=== PATIENT | female | born 2000 | race Caucasian/White ===

== ENCOUNTER 2021-01-08 13:00 | Emergency (ER) | payer MEDICAID, SELFPAY ==
--- NOTE | ~2021-01-08 | CT_ITS ---
EXAMINATION: CT abdomen pelvis w con EXAM DATE: 01/08/2021 15:33 INDICATION: Right sided abdominal pain. TECHNIQUE: Spiral CT of the abdomen and pelvis was performed following intravenous injection of 100 m L Omnipaque 350. Axial, coronal and sagittal images of the abdomen and pelvis were reviewed. The do se-length product (DLP) for this examination was 1507.10 mGy-cm. The exposure was tailored according to patient size (auto mA exposure control), and iterative reconstruction (ASIR) was used as addition al dose reduction technique. There is no prior study for comparison. FINDINGS: Punctate splenic granulomata. The liver, spleen, adrenal glands and pancreas are unremarka ble. There are cholecystectomy clips. Portal and splenic veins are patent. Kidneys enhance symmetr ically. There is no hydronephrosis. The uterus and ovaries are unremarkable, no adnexal mass. The bladder is unremarkable. There is no retroperitoneal or pelvic lymphadenopathy. The appendix is normal. The stomach and small bowel are unremarkable. There is expected amount of c olonic stool. No free intraperitoneal gas. The heart is normal in size. There are no pericardial or pleural effusions. The lung bases are unremarkable. The bones are unremarkable. IMPRESSION: 1. No acute intra-abdominal findings. Reviewed, dictated and finalized at location B.
[2021-01-08 13:15] VITALS: BP 111/64; RESP 18; TEMP 36.4; O2SAT 99
--- NOTE | 2021-01-08 13:35 | ED.GENADULT ---
HPI - General Adult General Chief complaint: Abdominal Pain Stated complaint: abd pain Time Seen by Provider: 01/08/21 13:05 History of Present Illness HPI narrative: Patient is a 20-year-old female who presents to the ER with upper abdominal pain. Right side. Sudden onset 2 hours ago. Radiates to her back. No nausea or vomiting. She has had her gallbladder removed. Cannot identify any aggravating or alleviating factors. Denies urinary symptoms. Related Data Home Medications Medication Instructions Recorded Confirmed buspirone 5 mg PO DAILY 01/08/21 cetirizine [Zyrtec] 10 mg PO DAILY 01/08/21 cholecalciferol (vitamin D3) 1,250 mcg PO WEEKLY 01/08/21 citalopram [Celexa] 20 mg PO DAILY 01/08/21 lisinopril-hydrochlorothiazide 1 tablet PO DAILY 01/08/21 phentermine [Adipex-P] 37.5 mg PO DAILY 01/08/21 potassium chloride 10 meq PO DAILY 01/08/21 Allergies Allergy/AdvReac Type Severity Reaction Status Date / Time brompheniramine Allergy Anaphylaxis Verified 01/08/21 13:24 Penicillins Allergy Anaphylaxis Verified 01/08/21 13:20 phenylephrine Allergy Anaphylaxis Verified 01/08/21 13:24 Review of Systems Review of Systems: All systems reviewed & are unremarkable except as noted in HPI and below Constitutional: Constitutional: Denies chills, Denies fever(s) and Denies weakness ENT: Denies nasal congestion and Denies sore throat Cardiovascular: Cardiovascular: Denies chest pain and Denies radiating jaw, neck or arm pain Gastrointestinal: Gastrointestinal: Reports abdominal pain, Denies diarrhea, Denies nausea and Denies vomiting Genitourinary: Genitourinary: Denies hematuria, Denies nocturia, Denies dysuria and Denies flank pain [facility] Past Medical History Medical History (Updated 01/08/21 @ 16:04 by Jorge Montalvo MD) Depression Hypertension Surgical History Surgical History (Updated 01/08/21 @ 13:37 by Jorge Montalvo MD) History of cholecystectomy Social History Social History (Updated 01/08/21 @ 13:37 by Jorge Montalvo MD) Smoking status: Never smoker Exam Narrative: Exam Narrative: GENERAL: Well-appearing, morbidly obese, and in no acute distress. HEAD: Normocephalic, atraumatic. CHEST: Clear to auscultation. No respiratory distress. HEART: Regular rate and rhythm. Normal peripheral pulses. ABDOMEN: Soft, mild tenderness in the right upper and lower quadrants without guarding, nondistended. EXTREMITIES: Normal range of motion. No edema. SKIN: Warm, dry, no rash. NEURO: Alert and oriented x3. PSYCH: Normal mood and affect. Course Course Emergency Course: Unremarkable evaluation. Discharge home. Vital Signs Vital signs: Vital Signs Temperature 97.5 F L 01/08/21 13:15 Respiratory Rate 18 01/08/21 13:15 Blood Pressure 111/64 01/08/21 13:15 Pulse Oximetry 99 01/08/21 13:15 Temperature 97.5 F L 01/08/21 13:15 Respiratory Rate 18 01/08/21 13:15 Blood Pressure 111/64 01/08/21 13:15 Pulse Oximetry 99 01/08/21 13:15 Medical Decision Making Vital Signs Vital Signs: Vital Signs Temperature 97.5 F L 01/08/21 13:15 Respiratory Rate 18 01/08/21 13:15 Blood Pressure 111/64 01/08/21 13:15 Pulse Oximetry 99 01/08/21 13:15 Temperature 97.5 F L 01/08/21 13:15 Respiratory Rate 18 01/08/21 13:15 Blood Pressure 111/64 01/08/21 13:15 Pulse Oximetry 99 01/08/21 13:15 Lab Data Result diagrams: 01/08/21 13:35 01/08/21 13:35 Labs: Lab Results 01/08/21 01/08/21 01/08/21 Range/Units 13:35 13:35 13:45 WBC 12.9 H (4.5-10.0) K/mm3 RBC 5.20 (4.2-5.4) M/mm3 Hgb 14.3 (12.0-15.0) g/dL Hct 43.2 (37.0-47.0) % MCV 83.1 (80-100) fl MCH 27.5 (26-34) pg MCHC 33.1 (32-36) g/dl RDW 14.3 (11.5-14.5) % Plt Count 395 H (150-375) k/mm3 MPV 10.8 H (7.4-10.4) fl Immature Gran % (Auto) 0.3 (0-0.5) % Neut % (Auto) 71.5 (45.5-73.1) % Lymph %
[2021-01-08 13:44] LABS: Basophils Absolute Auto 0.1 K/mm3 (0.0-0.1); Basophils Percent Auto 0.6 % (0.2-1.2); Eosinophils Absolute Auto 0.1 K/mm3 (0-0.3); Eosinophils Percent Auto 0.9 % (0-4.4); Hematocrit 43.2 % (37.0-47.0); Hemoglobin 14.3 g/dL (12.0-15.0); Immature Granulocyte Absolute 0.04 K/mm3 (0.00-0.031); Immature Granulocyte Percent A 0.3 % (0-0.5); Lymphocytes Absolute Auto 2.68 K/mm3 (0.9-3.2); Lymphocytes Percent Auto 20.7 % (18.3-44.2); Mean Corpuscular HGB Conc 33.1 g/dl (32-36); Mean Corpuscular Hemoglobin 27.5 pg (26-34); Mean Corpuscular Volume 83.1 fl (80-100); Mean Platelet Volume 10.8 fl (7.4-10.4); Monocytes Absolute Auto 0.8 K/mm3 (0.1-0.6); Neutrophils Absolute Auto 9.2 K/mm3 (1.3-6.7); Neutrophils Percent Auto 71.5 % (45.5-73.1); Platelet Count Result 395 k/mm3 (150-375); Red Cell Distribution Width 14.3 % (11.5-14.5); White Blood Count 12.9 K/mm3 (4.5-10.0)
[2021-01-08] MEDS: MORPHINE SULFATE (*CRX) 4 MG/ML INJ IV PUSH (13:48)
[2021-01-08 13:55] LABS: Alanine Aminotransferase 33 U/L (4-35); Albumin Level 4.8 g/dL (3.5-5.1); Alkaline Phosphatase 107 U/L (38-126); Anion Gap 11 mmol/L (8-16); Aspartate Amino Transferase 52 U/L (14-36); Bilirubin,Total 1.1 mg/dL (0.2-1.3); Blood Urea Nitrogen 21 mg/dL (7-17); Calcium 9.4 mg/dL (8.4-10.2); Carbon Dioxide 25 mmol/L (22-30); Chloride 102 mmol/L (98-107); Estimated CRCL calculation 102 ml/min; Estimated Glomerular Filt Rate > 60; Glucose 75 mg/dL (65-105); Lipase 64 U/L (23-300); Potassium 3.8 mmol/L (3.4-5.0); Sodium 138 mmol/L (137-145)
[2021-01-08 14:11] LABS: Add Urine Microscopic? YES; Appearance Urine Cloudy (Clear); Bilirubin Urine Negative (Negative); Blood Urine Negative (Negative); Color Urine Yellow (Yellow); Glucose Urine UA Negative (Negative); Ketones Urine 2+ mg/dL (Negative); Leukocyte Esterase Ur Negative LEU/UL (Negative); Mucus Urine Few /lpf; Nitrate Urine Negative (Negative); Protein Urine Negative (Negative); RBC Urine 0-2 /hpf (0-2); Specific Grav Ur 1.024 (1.001-1.035); Squamous Epithelial Cell Urine Few /hpf (Few); Urobilinogen Urine Negative mg/dL (<2.0); WBC Urine 0-3 /hpf
[2021-01-08 16:25] VITALS: BP 118/75; PULSE 72; RESP 18; O2SAT 100
== END 2021-01-08 16:25 | disposition home or self-care (01) ==
PROVIDERS: Emergency Provider Emergency Medicine
DX: R10.10 Upper abdominal pain, unspecified (principal); F32.9 Major depressive disorder, single episode, unspecified; I10 Essential (primary) hypertension
CPT/HCPCS: 36415; 74177; 80053; 81001; 81025; 83690; 85025; 96374; 99284; J2270; Q9967

== ENCOUNTER 2021-01-14 12:05 | Emergency (ER) | payer MEDICAID, SELFPAY ==
[2021-01-14 12:48] VITALS: BP 119/76; PULSE 80; RESP 18; TEMP 36.2; O2SAT 100
[2021-01-14 13:04] LABS: Basophils Absolute Auto 0.1 K/mm3 (0.0-0.1); Basophils Percent Auto 0.7 % (0.2-1.2); Eosinophils Absolute Auto 0.2 K/mm3 (0-0.3); Eosinophils Percent Auto 2.1 % (0-4.4); Hemoglobin 14.7 g/dL (12.0-15.0); Immature Granulocyte Absolute 0.03 K/mm3 (0.00-0.031); Immature Granulocyte Percent A 0.3 % (0-0.5); Lymphocytes Absolute Auto 2.08 K/mm3 (0.9-3.2); Lymphocytes Percent Auto 22.8 % (18.3-44.2); Mean Corpuscular HGB Conc 32.7 g/dl (32-36); Mean Corpuscular Hemoglobin 27.7 pg (26-34); Mean Corpuscular Volume 84.9 fl (80-100); Mean Platelet Volume 10.8 fl (7.4-10.4); Monocytes Absolute Auto 0.7 K/mm3 (0.1-0.6); Monocytes Percent Auto 7.1 % (2.6-8.5); Neutrophils Absolute Auto 6.1 K/mm3 (1.3-6.7); Platelet Count Result 347 k/mm3 (150-375); Red Cell Distribution Width 14.3 % (11.5-14.5); White Blood Count 9.1 K/mm3 (4.5-10.0)
[2021-01-14 13:17] LABS: Alanine Aminotransferase 26 U/L (4-35); Albumin Level 4.4 g/dL (3.5-5.1); Alkaline Phosphatase 96 U/L (38-126); Anion Gap 4 mmol/L (8-16); Aspartate Amino Transferase 28 U/L (14-36); Bilirubin,Total 0.9 mg/dL (0.2-1.3); Blood Urea Nitrogen 15 mg/dL (7-17); Calcium 9.3 mg/dL (8.4-10.2); Carbon Dioxide 31 mmol/L (22-30); Chloride 101 mmol/L (98-107); Estimated CRCL calculation 112 ml/min; Estimated Glomerular Filt Rate > 60; Glucose 93 mg/dL (65-105); Lipase 43 U/L (23-300); Potassium 4.4 mmol/L (3.4-5.0); Sodium 136 mmol/L (137-145)
[2021-01-14 13:44] LABS: Add Urine Microscopic? YES; Appearance Urine Cloudy (Clear); Bacteria Urine Trace /hpf; Bilirubin Urine Negative (Negative); Blood Urine Negative (Negative); Color Urine Yellow (Yellow); Glucose Urine UA Negative (Negative); Ketones Urine Negative (Negative); Leukocyte Esterase Ur 2+ LEU/UL (Negative); Mucus Urine Rare /lpf; Nitrate Urine Negative (Negative); Protein Urine Negative (Negative); RBC Urine 0-2 /hpf (0-2); Specific Grav Ur 1.016 (1.001-1.035); Squamous Epithelial Cell Urine Many /hpf (Few); Urobilinogen Urine Negative mg/dL (<2.0)
--- NOTE | 2021-01-14 14:04 | PC.NURSE ---
assisted dr kang with rectal exam
--- NOTE | 2021-01-14 14:33 | ED.GENADULT ---
HPI - General Adult General Chief complaint: Nausea/Vomiting/Diarrhea Stated complaint: dark stools, vomiting Time Seen by Provider: 01/14/21 13:48 History of Present Illness HPI narrative: Patient is a 20-year-old female who presents ER with abdominal pain as well as discomfort in her throat and dark stools. Patient seen last week and had an unremarkable evaluation including blood work and CT scan. Patient reports symptoms have persisted and now she is having dark black stools intermittently. They are not loose and she has not lost consciousness. No history of GI bleed. She takes famotidine intermittently for GERD. Patient reports her throat feels uncomfortable she is able to stop although even though she has discomfort. Patient reports she has now canceled her [employer] insurance and is going to apply for [employer] insurance. She does not have a doctor in the area. Related Data Home Medications Medication Instructions Recorded Confirmed buspirone 5 mg PO DAILY 01/08/21 cetirizine [Zyrtec] 10 mg PO DAILY 01/08/21 cholecalciferol (vitamin D3) 1,250 mcg PO WEEKLY 01/08/21 citalopram [Celexa] 20 mg PO DAILY 01/08/21 lisinopril-hydrochlorothiazide 1 tablet PO DAILY 01/08/21 phentermine [Adipex-P] 37.5 mg PO DAILY 01/08/21 potassium chloride 10 meq PO DAILY 01/08/21 Allergies Allergy/AdvReac Type Severity Reaction Status Date / Time brompheniramine Allergy Anaphylaxis Verified 01/08/21 13:24 Penicillins Allergy Anaphylaxis Verified 01/08/21 13:20 phenylephrine Allergy Anaphylaxis Verified 01/08/21 13:24 Review of Systems Review of Systems: All systems reviewed & are unremarkable except as noted in HPI and below Constitutional: Constitutional: Denies chills, Denies fever(s) and Denies weakness ENT: Denies nasal congestion and Reports sore throat Gastrointestinal: Gastrointestinal: Denies abdominal pain, Reports heartburn, Denies diarrhea, Reports nausea and Reports vomiting PMFSH Past Medical History Medical History (Updated 01/14/21 @ 14:34 by Jorge Montalvo MD) Depression Hypertension Surgical History Surgical History (Updated 01/08/21 @ 13:37 by Jorge Montalvo MD) History of cholecystectomy Social History Social History (Updated 01/08/21 @ 13:37 by Jorge Montalvo MD) Smoking status: Never smoker Exam Narrative: Exam Narrative: GENERAL: Well-appearing, morbidly obese, and in no acute distress. HEAD: Normocephalic, atraumatic. CHEST: Clear to auscultation. No respiratory distress. HEART: Regular rate and rhythm. Normal peripheral pulses. ABDOMEN: Soft, nontender, nondistended. Heme-negative stool on digital rectal exam. Normal-appearing rectum free of fissures or hemorrhoids. EXTREMITIES: Normal range of motion. No edema. SKIN: Warm, dry, no rash. NEURO: Alert and oriented x3. PSYCH: Normal mood and affect. Course Course Emergency Course: No evidence of GI bleed but will place patient on twice daily PPI to treat a peptic ulcer in case she is started develop 1. I will give her PCP as well as GI follow-up. Blood work normal and stable. Vital Signs Vital signs: Vital Signs Temperature 97.1 F L 01/14/21 12:48 Pulse Rate 80 01/14/21 12:48 Respiratory Rate 18 01/14/21 12:48 Blood Pressure 119/76 01/14/21 12:48 Pulse Oximetry 100 01/14/21 12:48 Temperature 97.1 F L 01/14/21 12:48 Pulse Rate 80 01/14/21 12:48 Respiratory Rate 18 01/14/21 12:48 Blood Pressure 119/76 01/14/21 12:48 Pulse Oximetry 100 01/14/21 12:48 Medical Decision Making Vital Signs Vital Signs: Vital Signs Temperature 97.1 F L 01/14/21 12:48 Pulse Rate 80 01/14/21 12:48 Respiratory Rate 18 01/14/21 12:48 Blood Pressure 119/76 01/14/21 12:48 Pulse Oximetry 100 01/14/21 12:48 Temperature 97.1 F L 01/14/21 12:48 Pulse Rate 80 01/14/21 12:48 Respiratory Rate 18 01/14/21 12:48 Blood Pressure 119/76 01/14/21 12:48 Pulse Oximetry 100 05
[2021-01-14 14:47] VITALS: BP 122/78; PULSE 68; RESP 18; O2SAT 99
== END 2021-01-14 14:49 | disposition home or self-care (01) ==
PROVIDERS: Emergency Provider Emergency Medicine
DX: K29.70 Gastritis, unspecified, without bleeding (principal); F32.9 Major depressive disorder, single episode, unspecified; I10 Essential (primary) hypertension
CPT/HCPCS: 36415; 80053; 81001; 81025; 83690; 85025; 87086; 87088; 99283

== ENCOUNTER → 2021-10-03 09:49 | Outpatient (CLI) | payer OTHER, SELFPAY ==
[2021-10-03 18:23] LABS: SARS-CoV-2 RNA PCR Negative
== END ==
PROVIDERS: PCP Nurse Practitioner Family; Visit Provider Family Medicine
DX: R50.9 Fever, unspecified (principal); Z20.822 Contact with and (suspected) exposure to COVID-19
CPT/HCPCS: C9803; U0003; U0005

== ENCOUNTER → 2021-10-15 02:02 | Outpatient (CLI) | payer OTHER, SELFPAY ==
[2021-10-15 17:21] LABS: SARS-CoV-2 RNA PCR Negative
== END ==
PROVIDERS: PCP Nurse Practitioner Family; Visit Provider Family Medicine
DX: R50.9 Fever, unspecified (principal); Z20.822 Contact with and (suspected) exposure to COVID-19
CPT/HCPCS: C9803; U0003; U0005

== ENCOUNTER 2021-12-24 11:21 | Emergency (ER) | payer OTHER, SELFPAY ==
--- NOTE | ~2021-12-24 | XR_ITS ---
EXAMINATION: XR chest 2V DATE: 12/24/2021 13:24 INDICATION: Pneumonia. TECHNIQUE: Frontal and lateral views of the chest were obtained. COMPARISON: CT abdomen and pelvis 12/24/2021 FINDINGS: There are small nodules in right upper lobe, consistent with pneumonia. No pleural effusion or pneumothorax. The heart size is normal. Surgical clips in the right upper quadrant are likely fro m cholecystectomy. IMPRESSION: 1. Mild right upper lobe pneumonia. The mild pneumonia in the lower lobes seen by CT is not visible. Reviewed, dictated and finalized at location B.
--- NOTE | ~2021-12-24 | CT_ITS ---
EXAMINATION: CT abdomen pelvis w con DATE: 12/24/2021 12:36 INDICATION: Epigastric and right upper quadrant abdominal pain. TECHNIQUE: Computed tomography (CT) of the abdomen and pelvis was performed with 100 mL Omnipaque 350 intravenous contrast. Automated exposure control and iterative reconstruction technique were employe d. The dose-length product was 1518.10 mGy-cm. COMPARISON: CT abdomen and pelvis 01/08/2021 FINDINGS: The visualized portions of the lung bases demonstrate centrilobular nodules and tree-in-bud opacities in the lower lobes, consistent with pneumonia. No pleural effusion. The heart size is norm al. No pericardial effusion. The liver is normal. There are changes of cholecystectomy. Calcification s in the spleen are consistent with old granulomatous disease. The pancreas, adrenal glands, and kidn eys are normal. There are no dilated loops of bowel. There is liquid stool in the colon correlating w ith the symptom of diarrhea. The appendix is normal. There are no pathologically enlarged lymph nodes . There is no free intraperitoneal fluid. There is mild thoracic spondylosis. IMPRESSION: 1. Mild pneumonia in the lower lobes. Reviewed, dictated and finalized at location B.
[2021-12-24 11:23] VITALS: BP 132/80; PULSE 108; RESP 18; TEMP 36.8; O2SAT 98
--- NOTE | 2021-12-24 11:32 | ED.NAVMDI ---
HPI - Nausea/Vomiting/Diarrhea General Chief complaint: Nausea/Vomiting/Diarrhea <TOMI Mendez Last Filed: 12/24/21 19:46> Stated complaint: diarrhea, vomiting <TOMI Mendez Last Filed: 12/24/21 19:46> Time Seen by Provider: 12/24/21 11:31 <TOMI Mendez Last Filed: 12/24/21 19:46> Source: patient <TOMI Mendez Last Filed: 12/24/21 19:46> Limitations: no limitations <TOMI Mendez Last Filed: 12/24/21 19:46> History of Present Illness HPI Narrative: Patient is a 21 y/o female who presents to the ED with c/o N/V/D. Patient reports she first developed diarrhea 1 week ago. Approximately a day later, she developed diffuse upper abdominal pain, worst in epigastric region and right upper quadrant, and nausea and vomiting. She states she has been unable to keep much down. She has been using Ibuprofen and Zofran at home without much relief of her symptoms. Patient also reports having a fever up to 102 at home, in addition to a mild cough and congestion, which she has attributed to her chronic seasonal allergies. No rectal bleeding, hematemesis, dysuria, hematuria Denies any sore throat, rhinorrhea. <TOMI Mendez Last Filed: 12/24/21 19:46> Related Data Home medications: Home Medications Medication Instructions Recorded Confirmed buspirone 5 mg PO DAILY 01/08/21 cholecalciferol (vitamin D3) 1,250 mcg PO WEEKLY 01/08/21 citalopram [Celexa] 20 mg PO DAILY 01/08/21 lisinopril-hydrochlorothiazide 1 tablet PO DAILY 01/08/21 <TOMI Mendez Last Filed: 12/24/21 19:46> Allergies/Adverse reactions: Allergies Allergy/AdvReac Type Severity Reaction Status Date / Time brompheniramine Allergy Anaphylaxis Verified 01/08/21 13:24 Penicillins Allergy Anaphylaxis Verified 01/08/21 13:20 phenylephrine Allergy Anaphylaxis Verified 01/08/21 13:24 sulfamethoxazole Allergy Anaphylaxis Verified 12/24/21 11:40 [From Bactrim] trimethoprim [From Bactrim] Allergy Anaphylaxis Verified 12/24/21 11:40 <Promise Rivera PA-C - Last Filed: 12/24/21 19:46> Review of Systems Review of Systems: CONSTITUTIONAL: Reports fever. ENT: Reports congestion. Denies rhinorrhea, sore throat. CARDIOVASCULAR: Denies chest pain. RESPIRATORY: Reports cough. Denies dyspnea. GASTROINTESTINAL: Reports abdominal pain, nausea, vomiting, and diarrhea. Denies constipation, hematemesis, rectal bleeding. GENITOURINARY: Denies dysuria or hematuria. MUSCULOSKELETAL: Denies back pain, joint pain, or myalgia. <Promise Rivera PA-C - Last Filed: 12/24/21 19:46> All systems reviewed & are unremarkable except as noted in HPI and below <Promise Rivera PA-C - Last Filed: 12/24/21 19:46> [facility] Past Medical History Medical History: Medical History Depression Hypertension <Promise Rivera PA-C - Last Filed: 12/24/21 19:46> Surgical History Surgical History: Surgical History History of cholecystectomy <Promise Rivera PA-C - Last Filed: 12/24/21 19:46> Social History Social History: Social History Smoking status: Never smoker <Promise Rivera PA-C - Last Filed: 12/24/21 19:46> Exam Narrative: GENERAL: Well appearing, obese, non-toxic, in no acute distress. HEAD: Normocephalic, atraumatic. NECK: Supple. No adenopathy, no masses. RESPIRATORY: Airway patent, respirations nonlabored. Clear to auscultation bilaterally, no rales, rhonchi, wheezing. CARDIOVASCULAR: Tachycardic with regular rhythm without murmurs, rubs, or gallops. Radial pulses 2+ and equal bilaterally. ABDOMINAL: Soft, tenderness to palpation of epigastric and RUQ, nondistended, no hepatosplenomegaly. Normoactive BS. MUSCULOSKELETAL: Moves all extremities. Strength/ROM intact without gross deformities or TTP. SKIN
[2021-12-24 12:05] LABS: Basophils Absolute Auto 0.1 K/mm3 (0.0-0.1); Basophils Percent Auto 0.5 % (0.2-1.2); Eosinophils Absolute Auto 0.2 K/mm3 (0-0.3); Hematocrit 55.3 % (37.0-47.0); Hemoglobin 17.9 g/dL (12.0-15.0); Immature Granulocyte Absolute 0.07 K/mm3 (0.00-0.031); Immature Granulocyte Percent A 0.7 % (0-0.5); Lymphocytes Absolute Auto 1.33 K/mm3 (0.9-3.2); Lymphocytes Percent Auto 12.4 % (18.3-44.2); Mean Corpuscular HGB Conc 32.4 g/dl (32-36); Mean Corpuscular Hemoglobin 26.8 pg (26-34); Mean Corpuscular Volume 82.8 fl (80-100); Mean Platelet Volume 10.1 fl (7.4-10.4); Monocytes Percent Auto 8.9 % (2.6-8.5); Neutrophils Absolute Auto 8.1 K/mm3 (1.3-6.7); Neutrophils Percent Auto 75.5 % (45.5-73.1); Platelet Count Result 399 k/mm3 (150-375); Red Blood Count 6.68 M/mm3 (4.2-5.4); Red Cell Distribution Width 17.3 % (11.5-14.5); White Blood Count 10.8 K/mm3 (4.5-10.0)
[2021-12-24 12:12] LABS: Appearance Urine Clear (Clear); Bilirubin Urine 2+ (Negative); Color Urine Yellow (Yellow); Glucose Urine UA Negative (Negative); Ketones Urine Negative (Negative); Leukocyte Esterase Ur Negative LEU/UL (Negative); Nitrate Urine Negative (Negative); Protein Urine 2+ mg/dL (Negative); Specific Grav Ur >= 1.030 (1.001-1.035); Urobilinogen Urine 0.2 mg/dL (<2.0)
[2021-12-24 12:13] LABS: Add Urine Microscopic? YES; Blood Urine Trace-Intact (Negative)
[2021-12-24 12:15] LABS: Alanine Aminotransferase 48 U/L (4-35); Albumin Level 5.3 g/dL (3.5-5.1); Alkaline Phosphatase 101 U/L (38-126); Anion Gap 16 mmol/L (8-16); Aspartate Amino Transferase 54 U/L (14-36); Bilirubin,Total 0.8 mg/dL (0.2-1.3); Blood Urea Nitrogen 19 mg/dL (7-17); Calcium 8.8 mg/dL (8.4-10.2); Carbon Dioxide 18 mmol/L (22-30); Chloride 103 mmol/L (98-107); Estimated CRCL calculation 76 ml/min; Estimated Glomerular Filt Rate 47; Glucose 107 mg/dL (65-110); Lipase 49 U/L (23-300); Potassium 3.7 mmol/L (3.4-5.0); Sodium 137 mmol/L (137-145)
[2021-12-24 12:19] LABS: Bacteria Urine Trace /hpf; Granular Casts Urine 30-49 /lpf; Mucus Urine Heavy /lpf; RBC Urine >75 /hpf (0-2); Squamous Epithelial Cell Urine Many /hpf (Few); WBC Urine 21-30 /hpf
[2021-12-24] MEDS: KETOROLAC 30 MG/ML VIAL (*BKC) IV PUSH (12:42)
[2021-12-24] MEDS: ONDANSETRON INJ 4 MG/2 ML VIAL IV PUSH (12:43)
[2021-12-24] MEDS: SODIUM CHLORIDE 0.9% IV 1,000 ML 999 ML IV CONT ×2 (12:43→14:49)
[2021-12-24 13:30] LABS: Influenza A QL RT-PCR Negative (Negative); Influenza B QL RT-PCR Negative (Negative); SARS-CoV-2 RNA PCR Negative
[2021-12-24 14:51] LABS: Anion Gap 13 mmol/L (8-16); Blood Urea Nitrogen 19 mg/dL (7-17); Carbon Dioxide 18 mmol/L (22-30); Chloride 106 mmol/L (98-107); Estimated CRCL calculation 82 ml/min; Estimated Glomerular Filt Rate 51; Glucose 88 mg/dL (65-110); Potassium 3.4 mmol/L (3.4-5.0); Sodium 137 mmol/L (137-145)
[2021-12-24 15:05] VITALS: BP 125/57; PULSE 74
[2021-12-24 15:06] VITALS: BP 135/87; PULSE 97
[2021-12-24 15:08] VITALS: BP 138/71; PULSE 86
[2021-12-24 16:49] VITALS: BP 139/81; PULSE 87; RESP 20; O2SAT 97
== END 2021-12-24 16:59 | disposition home or self-care (01) ==
PROVIDERS: Physician Assistant; Emergency Provider Emergency Medicine; PCP Nurse Practitioner Family
DX: N17.9 Acute kidney failure, unspecified (principal); J18.9 Pneumonia, unspecified organism; N30.01 Acute cystitis with hematuria; Z20.822 Contact with and (suspected) exposure to COVID-19; I10 Essential (primary) hypertension; F32.A Depression, unspecified
CPT/HCPCS: 36415; 71046; 74177; 80048; 80053; 81001; 81025; 83690; 85025; 87086; 87088; 87502; 96361; 96374; 96375; 99284; C9803; J1885; J2405; J7030; Q9967; U0003; U0005

== ENCOUNTER 2021-12-28 10:28 | Emergency (ER) | payer OTHER, SELFPAY ==
[2021-12-28 10:29] VITALS: BP 155/84; PULSE 85; RESP 18; TEMP 36.6; O2SAT 98
[2021-12-28 10:49] LABS: Basophils Absolute Auto 0.1 K/mm3 (0.0-0.1); Basophils Percent Auto 0.7 % (0.2-1.2); Eosinophils Absolute Auto 0.1 K/mm3 (0-0.3); Eosinophils Percent Auto 1.7 % (0-4.4); Hematocrit 46.8 % (37.0-47.0); Hemoglobin 15.4 g/dL (12.0-15.0); Immature Granulocyte Absolute 0.04 K/mm3 (0.00-0.031); Immature Granulocyte Percent A 0.5 % (0-0.5); Lymphocytes Percent Auto 36.1 % (18.3-44.2); Mean Corpuscular HGB Conc 32.9 g/dl (32-36); Mean Corpuscular Hemoglobin 26.4 pg (26-34); Mean Corpuscular Volume 80.1 fl (80-100); Mean Platelet Volume 9.8 fl (7.4-10.4); Monocytes Absolute Auto 0.5 K/mm3 (0.1-0.6); Monocytes Percent Auto 6.5 % (2.6-8.5); Neutrophils Absolute Auto 4.4 K/mm3 (1.3-6.7); Neutrophils Percent Auto 54.5 % (45.5-73.1); Platelet Count Result 395 k/mm3 (150-375); Red Blood Count 5.84 M/mm3 (4.2-5.4)
[2021-12-28 11:00] LABS: Atypical Lymphocytes Present
[2021-12-28 11:01] LABS: Alanine Aminotransferase 116 U/L (4-35); Albumin Level 4.4 g/dL (3.5-5.1); Alkaline Phosphatase 94 U/L (38-126); Anion Gap 10 mmol/L (8-16); Aspartate Amino Transferase 58 U/L (14-36); Blood Urea Nitrogen 16 mg/dL (7-17); Calcium 8.4 mg/dL (8.4-10.2); Carbon Dioxide 23 mmol/L (22-30); Chloride 105 mmol/L (98-107); Estimated CRCL calculation 87 ml/min; Estimated Glomerular Filt Rate 56; Glucose 103 mg/dL (65-110); Lipase 81 U/L (23-300); Potassium 2.9 mmol/L (3.4-5.0); Sodium 138 mmol/L (137-145)
--- NOTE | 2021-12-28 11:54 | PC.NURSE ---
PT unable to produce enough urine for sample at this time.
[2021-12-28 12:23] LABS: Appearance Urine Cloudy (Clear); Bilirubin Urine 1+ (Negative); Color Urine Yellow (Yellow); Glucose Urine UA Negative (Negative); Ketones Urine Negative (Negative); Leukocyte Esterase Ur 3+ LEU/UL (Negative); Nitrate Urine Negative (Negative); Protein Urine 2+ mg/dL (Negative); Specific Grav Ur >= 1.030 (1.001-1.035); Urobilinogen Urine 0.2 mg/dL (<2.0)
[2021-12-28 12:27] LABS: Bacteria Urine Trace /hpf; Mucus Urine Heavy /lpf; RBC Urine 21-50 /hpf (0-2); Squamous Epithelial Cell Urine Many /hpf (Few); WBC Clumps Urine Present /HPF; WBC Urine >75 /hpf
[2021-12-28 12:31] LABS: Add Urine Microscopic? YES; Blood Urine Trace-Intact (Negative)
[2021-12-28] MEDS: PROMETHAZINE HCL 25 MG/ML AMPUL 12.5 MG IV PUSH (13:10)
[2021-12-28] MEDS: SODIUM CHLORIDE 0.9% IV 1,000 ML 999 ML IV CONT (13:10)
--- NOTE | 2021-12-28 13:31 | ED.NAVMDI ---
HPI - Nausea/Vomiting/Diarrhea General Chief complaint: Nausea/Vomiting/Diarrhea Stated complaint: no urination in 3 days, not able to keep food down Time Seen by Provider: 12/28/21 12:02 History of Present Illness HPI Narrative: Patient is a 21-year-old female who presents the ER with reports of nausea and vomiting as well as decreased urine output. Patient has been feeling unwell for 3 days. She is already been seen in ER once prior. She reports she continues to have emesis daily and cannot keep down any food. Due to this she has been unable to produce adequate urine output. She was also diagnosed with pneumonia. She has been taking her Levaquin daily. She denies fevers or chills or sweats. No cough or dyspnea at this time. No chest pain or chest pressure. She is without abdominal pain or diarrhea. Does not feel lower abdominal discomfort like she is retaining urine. She is able to get some urine out but feels like its with decreased amount. No dysuria or flank pain. Related Data Home Medications Medication Instructions Recorded Confirmed buspirone 5 mg PO DAILY 01/08/21 cholecalciferol (vitamin D3) 1,250 mcg PO WEEKLY 01/08/21 citalopram [Celexa] 20 mg PO DAILY 01/08/21 lisinopril-hydrochlorothiazide 1 tablet PO DAILY 01/08/21 aripiprazole mg 12/28/21 bupropion HCl mg PO 12/28/21 Allergies Allergy/AdvReac Type Severity Reaction Status Date / Time brompheniramine Allergy Anaphylaxis Verified 12/28/21 10:34 Penicillins Allergy Anaphylaxis Verified 12/28/21 10:34 phenylephrine Allergy Anaphylaxis Verified 12/28/21 10:34 sulfamethoxazole Allergy Anaphylaxis Verified 12/28/21 10:34 [From Bactrim] trimethoprim [From Bactrim] Allergy Anaphylaxis Verified 12/28/21 10:34 Review of Systems Review of Systems: All systems reviewed & are unremarkable except as noted in HPI and below Constitutional: Constitutional: Denies chills, Denies fever(s) and Denies weakness ENT: Denies nasal congestion and Denies sore throat Cardiovascular: Cardiovascular: Denies chest pain, Denies rapid heart rate and Denies radiating jaw, neck or arm pain Respiratory: Respiratory: Denies chest congestion, Denies cough, Denies dyspnea and Denies wheezing Gastrointestinal: Gastrointestinal: Denies abdominal pain, Denies diarrhea, Reports nausea and Reports vomiting Genitourinary: Genitourinary: Denies nocturia, Denies dysuria and Denies flank pain PMF Past Medical History Medical History Depression Hypertension Surgical History Surgical History History of cholecystectomy Social History Social History Smoking status: Never smoker Exam Narrative: GENERAL: Well-appearing, obese, and in no acute distress. HEAD: Normocephalic, atraumatic. EYES: PERRL and EOMI. CHEST: Clear to auscultation. No respiratory distress. HEART: Regular rate and rhythm. Normal peripheral pulses. ABDOMEN: Soft, nontender, nondistended. EXTREMITIES: Normal range of motion. No edema. SKIN: Warm, dry, no rash. NEURO: Alert and oriented x3. PSYCH: Normal mood and affect. Course Course Emergency Course: Patient hydrated. She has been able to urinate. She has provided poor quality samples. She has no urinary symptoms and she has been on some levofloxacin. Previous urine culture showed mixed genital gage. Not concern for UTI at this time. This urine will also be sent for culture. Patient will be discharged home. Vital Signs Vital signs: Vital Signs Temperature 97.8 F 12/28/21 10:29 Pulse Rate 85 12/28/21 10:29 Respiratory Rate 18 12/28/21 10:29 Blood Pressure 155/84 H 12/28/21 10:29 Pulse Oximetry 98 12/28/21 10:29 Temperature 97.8 F 12/28/21 10:29 Pulse Rate 85 12/28/21 10:29 Respiratory Rate 18 12/28/21 10:29 Blood Pressure 155/84 H 12/07
[2021-12-28 15:52] LABS: Add Urine Microscopic? YES; Appearance Urine Cloudy (Clear); Bilirubin Urine Negative (Negative); Blood Urine Negative (Negative); Color Urine Yellow (Yellow); Glucose Urine UA Negative (Negative); Ketones Urine Negative (Negative); Leukocyte Esterase Ur 3+ LEU/UL (Negative); Mucus Urine Rare /lpf; Nitrate Urine Negative (Negative); Protein Urine 1+ mg/dL (Negative); Specific Grav Ur 1.021 (1.001-1.035); Squamous Epithelial Cell Urine Many /hpf (Few); Urobilinogen Urine Negative mg/dL (<2.0); WBC Urine >75 /hpf
[2021-12-28 16:43] VITALS: BP 125/53; PULSE 71; RESP 16; O2SAT 98
== END 2021-12-28 16:44 | disposition home or self-care (01) ==
PROVIDERS: Emergency Medicine; Emergency Provider Emergency Medicine; PCP Nurse Practitioner Family
DX: R11.2 Nausea with vomiting, unspecified (principal); E86.0 Dehydration; I10 Essential (primary) hypertension; F32.A Depression, unspecified
CPT/HCPCS: 36415; 80053; 81001; 81025; 83690; 85025; 87077; 87086; 87088; 87186; 96361; 96374; 99284; J2550; J7030

== ENCOUNTER 2022-10-07 01:10 | Day surgery (SDC) | payer OTHER, SELFPAY ==
[2022-09-22 14:32] VITALS: BMI 45.8
[2022-10-07 11:12] VITALS: BP 143/85; PULSE 90; RESP 20; TEMP 36.1; O2SAT 96; BMI 46.5
[2022-10-07] MEDS: LACTATED RINGERS 1,000 ML 150 ML IV CONT (11:17)
--- NOTE | 2022-10-07 11:44 | WPDANESEPPF ---
Anes - Initial Pre Proc Eval Procedure: Operation Date: 10/07/22 12:30 Proposed Procedures p Esophagogastroduodenoscopy & Colonoscopy - Bubba Ruiz MD Date/Time: 10/07/22 11:44 Surgeon: Bubba Ruiz MD Pre Op Diagnosis: GERD, other fecal abnormalities Patient Data Age: 22 Gender: F Height: 1.65 m Weight: 127 kg Last Vital Signs Temp 97 F L 10/07/22 11:12 Pulse 90 10/07/22 11:12 Resp 20 10/07/22 11:12 BP 143/85 H 10/07/22 11:12 Pulse Ox 96 10/07/22 11:12 O2 Del Method Room Air 10/07/22 11:12 Allergies Allergy/AdvReac Type Severity Reaction Status Date / Time brompheniramine Allergy Anaphylaxis Verified 10/07/22 11:10 Penicillins Allergy Anaphylaxis Verified 10/07/22 11:10 phenylephrine Allergy Anaphylaxis Verified 10/07/22 11:10 sulfamethoxazole Allergy Anaphylaxis Verified 10/07/22 11:10 [From Bactrim] trimethoprim [From Bactrim] Allergy Anaphylaxis Verified 10/07/22 11:10 Home Medications Medication Instructions Recorded Confirmed Type buspirone 5 mg tablet 7.5 mg PO DAILY 01/08/21 10/07/22 History cholecalciferol (vitamin D3) 1,250 1,250 mcg PO WEEKLY 01/08/21 10/07/22 History mcg (50,000 unit) capsule vitamin B complex (B 1 tablet PO DAILY 09/22/22 10/07/22 History Complex-Vitamin B12 tablet) Patient hx anesthesia problems: none Family hx anesthesia problems: none Results Review: All pre-operative results and documents have been reviewed as part of the pre-operative evaluation. [facility] Past Medical History Medical History Depression Hypertension Surgical History Surgical History History of cholecystectomy Social History Social History Smoking status: Current every day smoker Tobacco type: e-cigarettes/vaping Alcohol intake: never Substance use: never Substance use type: does not use Living arrangements: with roommate(s) Spiritual care concerns: No Anes - Eval Final PreProcedure Day of Procedure 10/07/22 11:44 Patient weight: morbidly obese Heart: regular rate and rhythm Lungs: clear to auscultation Airway: Mallampati scale class III Neurological: alert and oriented Last oral intake: >/= 8 hours ASA classification: III Emergent: no Anesthetic plan: proceed Anesthesia type and monitoring: general GIVS and standard monitoring Results Review: All pre-operative results and documents have been reviewed as part of the pre-operative evaluation. Informed Consent: The patient's anesthetic plan and its attendant risks and benefits were discussed with the patient/family/POA. Questions were solicited and answers provided to the satisfaction of the patient/family/POA.
--- NOTE | 2022-10-07 12:37 | PM.HPGS ---
History of Present Illness History of Present Illness Consent: Risks, benefits, and alternatives have been discussed and questions answered. Patient agrees to proceed with procedure. Chief complaint: GERD, other fecal abnormalities Narrative: Jessy Nascimento is a 22 year old female with intermittent nausea and vomiting (denies marijuana), also diarrhea since her GB was removed and few times noted blood in stool, never had scopes. Review of Systems Constitutional: Constitutional: Denies headache(s) and Denies weakness Eyes: Eyes: Denies blurry vision ENT: Reports Normal hearing present, Denies headache(s) and Denies neck pain Cardiovascular: Cardiovascular: Denies chest pain and Denies dyspnea Respiratory: Respiratory: Denies dyspnea Gastrointestinal: Gastrointestinal: Reports no additional gastrointestinal complaints Genitourinary: Genitourinary: Denies dysuria Musculoskeletal: Musculoskeletal: Denies neck pain Integumentary/Breasts: Skin/Breast: Denies dry skin Neurologic: Reports Normal hearing present, Denies headache(s) and Denies weakness Psychiatric: Psychiatric: Denies anxiety Endocrine: Endocrine: Denies change in body appearance Hematologic/Lymphatic: Hematologic/Lymphatic: Denies easy bleeding Allergic/Immunologic: Allergic/Immunologic: Denies urticaria PMFSH Past Medical History Medical History (Updated 10/07/22 @ 12:38 by Bubba Ruiz MD) Depression Diarrhea Hypertension Nausea and vomiting in adult Surgical History Surgical History (Updated 10/07/22 @ 12:38 by Bubba Ruiz MD) History of cholecystectomy Social History Social History Smoking status: Current every day smoker Tobacco type: e-cigarettes/vaping Alcohol intake: never Substance use: never Substance use type: does not use Living arrangements: with roommate(s) Spiritual care concerns: No Meds Home Medications and Allergies Home Medications Medication Instructions Recorded Confirmed Type buspirone 5 mg tablet 7.5 mg PO DAILY 01/08/21 10/07/22 History cholecalciferol (vitamin D3) 1,250 1,250 mcg PO WEEKLY 01/08/21 10/07/22 History mcg (50,000 unit) capsule vitamin B complex (B 1 tablet PO DAILY 09/22/22 10/07/22 History Complex-Vitamin B12 tablet) Allergies Allergy/AdvReac Type Severity Reaction Status Date / Time brompheniramine Allergy Anaphylaxis Verified 10/07/22 11:10 Penicillins Allergy Anaphylaxis Verified 10/07/22 11:10 phenylephrine Allergy Anaphylaxis Verified 10/07/22 11:10 sulfamethoxazole Allergy Anaphylaxis Verified 10/07/22 11:10 [From Bactrim] trimethoprim [From Bactrim] Allergy Anaphylaxis Verified 10/07/22 11:10 Vital Signs Vital Signs - 24 hr 10/07/22 11:12 Temperature 97 F L Pulse Rate 90 Respiratory Rate 20 Blood Pressure 143/85 H Pulse Oximetry 96 Oxygen Delivery Room Air Exam Const: General: comfortable and no acute distress HENMT: Face/Nose/Sinus: Normal nares present Eyes: General: appearance normal, both eyes and all related structures Neck: Neck: no JVD Resp: Auscultation: clear to auscultation bilaterally Cardio: Rate: regular rate Rhythm: regular rhythm GI: Inspection: non-distended GI Palp: Yes Soft to palpation Skin: General skin exam: normal color Neuro: General: gait normal Speech: normal speech Extrem: General: normal to inspection Psych: Mental Status: mental status grossly normal Assessment and Plan Assessment and plan (1) Nausea and vomiting in adult: Code(s): R11.2 - Nausea with vomiting, unspecified Status: Acute Assessment and Plan: egd with bx (2) Diarrhea: Code(s): R19.7 - Diarrhea, unspecified Status: Acute Assessment and Plan: colonoscopy, probably post cholecystectomy related (3) History of cholecystectomy: Code(s): Z90.49 - Acquired absence of other
--- NOTE | 2022-10-07 13:03 | SUR.OPER ---
EGD START: 1242; END: 1246. COLONOSCOPY START: 1252; END:1300.
[2022-10-07 13:04] VITALS: BP 133/90; PULSE 93; RESP 23; O2SAT 100
[2022-10-07 13:14] VITALS: BP 149/86; PULSE 81; RESP 19; O2SAT 100
[2022-10-07 13:24] VITALS: BP 158/87; PULSE 80; RESP 20; O2SAT 100
== END 2022-10-07 13:32 | disposition home or self-care (01) ==
PROVIDERS: PCP Nurse Practitioner Family; Visit Provider Internal Medicine Gastroenterology
PROC: 0DJ08ZZ Inspection of Upper Intestinal Tract, Via Natural or Artificial Opening Endoscopic (ICD-10-PCS; CPT 43235; principal; 2022-10-07 12:30)
DX: R19.7 Diarrhea, unspecified (principal); K92.1 Melena; K64.8 Other hemorrhoids; R11.2 Nausea with vomiting, unspecified; K44.9 Diaphragmatic hernia without obstruction or gangrene; Z90.49 Acquired absence of other specified parts of digestive tract; F32.A Depression, unspecified; F17.290 Nicotine dependence, other tobacco product, uncomplicated; E66.01 Morbid (severe) obesity due to excess calories; Z68.42 Body mass index [BMI] 45.0-49.9, adult
CPT/HCPCS: 45380; 43239; 88305; J2704; J7120

== ENCOUNTER 2023-08-20 16:19 | Emergency (ER) | payer OTHER, SELFPAY ==
--- NOTE | ~2023-08-20 | XR_ITS ---
EXAMINATION: XR chest 2V DATE: 08/20/2023 17:05 INDICATION: Chest pain. TECHNIQUE: Frontal and lateral views of the chest were obtained. COMPARISON: Chest 2 views 12/24/2021, CT abdomen and pelvis 12/24/2021 FINDINGS: There is no pneumonia, pleural effusion, or pneumothorax. The heart size is normal. IMPRESSION: 1. No acute cardiopulmonary disease. Reviewed, dictated and finalized at location A. L ALIGNMENT MECHANIC
--- NOTE | ~2023-08-20 | CT_ITS ---
EXAMINATION: CTA chest PE protocol DATE: 08/20/2023 19:50 INDICATION: Chest pain, shortness of breath and elevated d-dimer TECHNIQUE: Computed tomography (CT) pulmonary angiogram of the chest was performed with 200 mL Omnipa que-350 intravenous contrast. Additional 3D reconstructions utilizing coronal maximum intensity proje ction (MIP) were performed. Automated exposure control and iterative reconstruction technique were em ployed. The dose-length product was 1863.91 mGy-cm. COMPARISON: None FINDINGS: Good contrast opacification of the pulmonary arteries. There is mild streak artifact from dense contr ast in the superior vena cava and right atrium. Mild motion artifact which does not significantly alonzo it evaluation. No pulmonary embolism. Mild linear discoid atelectasis in the right middle lobe. A few small calcified pulmonary nodules in the bilateral upper lobes, left greater than right, along with calcified left hilar and mediastinal lymph nodes and a few scattered hepatic and splenic calcific les ions, all consistent with old granulomatous disease. No pneumonia, pulmonary edema, pleural effusion or pneumothorax. Heart size is normal. No pericardial effusion. Thoracic aorta is normal in caliber w ith no dissection. There are some residual thymic tissue in the anterior mediastinum. No pathological ly enlarged thoracic lymphadenopathy. Cholecystectomy clips the gallbladder fossa. Bones are unremark able. IMPRESSION: 1. Mild discoid atelectasis in the right middle lobe. No pulmonary embolism or other acute cardiopulm onary disease. Reviewed, dictated and finalized at location A. CHOOL TEACHER'S ASSISTANT IMPRESSION: 1. Mild discoid atelectasis in the right middle lobe. No pulmonary embolism or other acute cardiopulmonary disease.
--- NOTE | 2023-08-20 16:23 | ECG_ITS ---
Measurements Intervals [place] Rate: 112 P: 54 SD: 192 QRS: 17 QRSD: 96 T: 31 QT: 325 QTc: 444 Interpretive Statements SINUS TACHYCARDIA LOW QRS VOLTAGE WITH POOR R-WAVE PROGRESSION BORDERLINE ECG NO PREVIOUS ECG AVAILABLE FOR COMPARISON Electronically Signed On 08-21-2023 13:50:35 INDUSTRIAL EQUIPMENT MECHANIC by Vin Bearden M.D.
[2023-08-20 16:31] VITALS: BP 146/92; PULSE 111; RESP 20; TEMP 37.3; O2SAT 100
--- NOTE | 2023-08-20 16:41 | ED.CHESTPAIN ---
HPI - Chest Pain General Chief Complaint: Chest Pain <Carmela Burgess APRN - Last Filed: 08/20/23 19:20> Stated Complaint: Chest pain <Carmela Burgess APRN - Last Filed: 08/20/23 19:20> Time Seen by Provider: 08/20/23 16:41 <Carmela Burgess APRN - Last Filed: 08/20/23 19:20> Source: patient <Carmela Burgess APRN - Last Filed: 08/20/23 19:20> Mode of arrival: ambulatory <Carmela Burgess APRN - Last Filed: 08/20/23 19:20> Limitations: no limitations <Carmela Burgess APRN - Last Filed: 08/20/23 19:20> History of Present Illness HPI narrative: patient is a 23-year-old female past medical history as noted below who presents emergency department today ambulatory with a steady gait for evaluation of shortness of breath, chest pain, anxiety. Patient also states that her lower legs have felt swollen as well as her feet. She denies any cardiac history. She states that she has had a little bit of congestion / cough but just thought it was her allergies. She does have anxiety. Denies any known exposure to any illness. Denies any history of PE or DVT or heart failure. Denies any recent trauma. No travel. Denies headache, nausea vomiting abdominal pain, urinary symptoms, diarrhea.denies fever or chills. denies any drug, alcohol, tobacco use. denies new medications. <Carmela Burgess APRN - Last Filed: 08/20/23 19:20> Related Data Home Medications: Home Medications Medication Instructions Recorded Confirmed buspirone 5 mg tablet 7.5 mg PO DAILY 01/08/21 10/07/22 cholecalciferol (vitamin D3) 1,250 1,250 mcg PO WEEKLY 01/08/21 10/07/22 mcg (50,000 unit) capsule vitamin B complex (B 1 tablet PO DAILY 09/22/22 10/07/22 Complex-Vitamin B12 tablet) <Carmela Burgess APRN - Last Filed: 08/20/23 19:20> Allergies/Adverse Reactions: Allergies Allergy/AdvReac Type Severity Reaction Status Date / Time brompheniramine Allergy Anaphylaxis Verified 10/07/22 11:10 Penicillins Allergy Anaphylaxis Verified 10/07/22 11:10 phenylephrine Allergy Anaphylaxis Verified 10/07/22 11:10 sulfamethoxazole Allergy Anaphylaxis Verified 10/07/22 11:10 [From Bactrim] trimethoprim [From Bactrim] Allergy Anaphylaxis Verified 10/07/22 11:10 <Carmela Burgess APRN - Last Filed: 08/20/23 19:20> Review of Systems Review of Systems: All systems reviewed & are unremarkable except as noted in HPI and below <Carmela Burgess APRN - Last Filed: 08/20/23 19:20> PMFSH Past Medical History Medical History: Medical History Depression Diarrhea Hypertension Nausea and vomiting in adult <Carmela Burgess APRN - Last Filed: 08/20/23 19:20> Surgical History Surgical History: Surgical History History of cholecystectomy <Carmela Burgess APRN - Last Filed: 08/20/23 19:20> Social History Social History: Social History Smoking status: Current every day smoker Tobacco type: e-cigarettes/vaping Alcohol intake: never Substance use: never Substance use type: does not use Living arrangements: with roommate(s) Spiritual care concerns: No <Carmela Burgess APRN - Last Filed: 08/20/23 19:20> Exam Narrative: GENERAL: Well-appearing, obese, well-nourished, respirations regular and non-labored, appears anxious/nervous on exam stretcher. HEAD: Normocephalic, atraumatic. EYES: PERRLA and EOMI. ENT: Nares clear, no rhinorrhea or epistaxis. Mucous membranes moist. NECK: Supple. CHEST: Clear to auscultation. No respiratory distress. HEART: Regular rate and increased rhythm. No murmur heard. Normal peripheral pulses. ABDOMEN: Soft, nontender, nondistended, normal active bowel sounds. EXTREMITIES: Normal range of motion. trace BLE, no pitting edema. no warmth/erythema to BLE. negative Nguyễn's sign bilaterally SKIN:
[2023-08-20 16:46] LABS: Basophils Absolute Auto 0.1 K/mm3 (0.0-0.1); Basophils Percent Auto 0.4 % (0.2-1.2); Eosinophils Absolute Auto 0.6 K/mm3 (0-0.3); Eosinophils Percent Auto 3.8 % (0-4.4); Hematocrit 42.6 % (37.0-47.0); Hemoglobin 13.8 g/dL (12.0-15.0); Immature Granulocyte Percent A 0.7 % (0-0.5); Lymphocytes Absolute Auto 2.81 K/mm3 (0.9-3.2); Lymphocytes Percent Auto 19.2 % (18.3-44.2); Mean Corpuscular HGB Conc 32.4 g/dl (32-36); Mean Corpuscular Hemoglobin 28.5 pg (26-34); Mean Platelet Volume 10.4 fl (7.4-10.4); Monocytes Absolute Auto 0.8 K/mm3 (0.1-0.6); Monocytes Percent Auto 5.5 % (2.6-8.5); Neutrophils Absolute Auto 10.3 K/mm3 (1.3-6.7); Neutrophils Percent Auto 70.4 % (45.5-73.1); Platelet Count Result 338 k/mm3 (150-375); Red Blood Count 4.84 M/mm3 (4.2-5.4); Red Cell Distribution Width 14.6 % (11.5-14.5); White Blood Count 14.6 K/mm3 (4.5-10.0)
[2023-08-20 16:59] LABS: Alanine Aminotransferase 20 U/L (6-35); Alkaline Phosphatase 95 U/L (38-126); Anion Gap 8 mmol/L (8-16); Aspartate Amino Transferase 25 U/L (14-36); Bilirubin,Total 0.5 mg/dL (0.2-1.3); Blood Urea Nitrogen 14 mg/dL (7-17); Calcium 8.6 mg/dL (8.4-10.2); Carbon Dioxide 22 mmol/L (22-30); Chloride 108 mmol/L (98-107); Estimated CRCL calculation 119 ml/min; Estimated Glomerular Filt Rate > 60; Glucose 114 mg/dL (65-110); Lipase 87 U/L (23-300); Sodium 138 mmol/L (137-145)
[2023-08-20 17:03] LABS: INR 0.9; Prothrombin Time 12.4 Seconds (11.1-14.7)
[2023-08-20 17:04] LABS: Partial Thromboplastin Time 28.1 SECONDS (22.3-36.8)
[2023-08-20 17:09] LABS: Troponin I < 0.012 ng/mL (0.000-0.034)
[2023-08-20] MEDS: SODIUM CHLORIDE 0.9% IV 1,000 ML 999 ML IV CONT (17:21)
[2023-08-20] MEDS: LORazepam INJ (*CRX) 2 MG/ML VIAL 1 MG IV PUSH (17:21)
[2023-08-20] MEDS: ASPIRIN 81 MG CHEWABLE TABLET 324 MG PO (17:22)
[2023-08-20 17:40] LABS: Lactic Acid Reflex 1.5 mmol/L (0.7-2.0)
[2023-08-20 17:41] LABS: Magnesium 2.3 mg/dL (1.6-2.3)
[2023-08-20 17:49] LABS: INR 0.9; Prothrombin Time 12.3 Seconds (11.1-14.7)
[2023-08-20 18:06] LABS: Influenza A QL RT-PCR Negative (Negative); Influenza B QL RT-PCR Negative (Negative); RSV RNA, RT-PCR Negative (Negative); SARS-CoV-2 RNA PCR Negative (Negative)
[2023-08-20 18:12] LABS: D Dimer 0.52 ug/mL (<0.48)
--- NOTE | 2023-08-20 19:14 | PC.NURSE ---
Assumed care of pt from BESSIE Reyes at this time.
[2023-08-20 19:30] VITALS: BP 138/87; PULSE 94; RESP 20; O2SAT 98
[2023-08-20 20:20] LABS: Thyroid Stimulating Hormone Reflex 0.884 uIU/mL (0.465-4.68)
[2023-08-20 20:53] VITALS: PULSE 98; O2SAT 100
[2023-08-20 21:33] LABS: NT Pro B Type Natriuretic Pept 58 pg/mL (19.9-100); Troponin I < 0.012 ng/mL (0.000-0.034)
[2023-08-20 22:08] VITALS: BP 112/61; PULSE 98; RESP 19; O2SAT 99
== END 2023-08-20 22:09 | disposition home or self-care (01) ==
PROVIDERS: Emergency Medicine; Emergency Provider Nurse Practitioner; PCP Nurse Practitioner Family
DX: R07.89 Other chest pain (principal); F41.9 Anxiety disorder, unspecified; Z20.822 Contact with and (suspected) exposure to COVID-19; I10 Essential (primary) hypertension; F32.A Depression, unspecified; Z90.49 Acquired absence of other specified parts of digestive tract; F17.290 Nicotine dependence, other tobacco product, uncomplicated; R00.0 Tachycardia, unspecified
CPT/HCPCS: 36415; 71046; 71275; 80053; 83605; 83690; 83735; 83880; 84443; 84484; 85025; 85380; 85610; 85730; 87637; 93005; 96361; 96374; 99284; A9270; J2060; J7030; Q9967

== ENCOUNTER 2023-08-22 13:08 | Emergency (ER) | payer OTHER, SELFPAY ==
--- NOTE | ~2023-08-22 | US_ITS ---
EXAMINATION: US venous doppler [facility] DATE: 08/22/2023 14:57 INDICATION: rule out blood clot . TECHNIQUE: Grayscale images without and with compression and Doppler images of the bilateral lower ex tremity veins were obtained. COMPARISON: None FINDINGS: The right common femoral vein, profunda (deep) femoral vein, femoral vein, popliteal vein, peroneal v ein, posterior tibial veins, gastrocnemius vein, and greater saphenous vein are patent. The left common femoral vein, profunda (deep) femoral vein, femoral vein, popliteal vein, peroneal v ein, posterior tibial veins, gastrocnemius vein, and greater saphenous vein are patent. IMPRESSION: Patent bilateral lower extremity veins. No evidence of deep venous thrombosis. Reviewed, dictated and finalized at location K. ODUCTION ARTIST
[2023-08-22 13:09] VITALS: TEMP 36.8
[2023-08-22 13:11] VITALS: BP 144/90; PULSE 110; RESP 20; TEMP 36.6; O2SAT 97
--- NOTE | 2023-08-22 13:40 | ED.GENADULT ---
HPI - General Adult General Chief complaint: Unspecified Stated complaint: all over swelling Time Seen by Provider: 08/22/23 13:26 Source: patient Mode of arrival: ambulatory Limitations: no limitations History of Present Illness HPI narrative: This is a 23-year-old female who presents to the ED with chief complaint of generalize swelling for the past several weeks. Reports she was seen here initially for similar symptoms but things have not improved. She reports lower leg swelling bilaterally with some discomfort in the legs and feet as well. Denies any or worsening symptoms since she was seen here 1 week ago but feels like nothing is working for the swelling. Denies fevers, chills, skin changes, chest pain, shortness of breath, abdominal pain. Related Data Home Medications Medication Instructions Recorded Confirmed buspirone 5 mg tablet 7.5 mg PO DAILY 01/08/21 10/07/22 cholecalciferol (vitamin D3) 1,250 1,250 mcg PO WEEKLY 01/08/21 10/07/22 mcg (50,000 unit) capsule vitamin B complex (B 1 tablet PO DAILY 09/22/22 10/07/22 Complex-Vitamin B12 tablet) Allergies Allergy/AdvReac Type Severity Reaction Status Date / Time brompheniramine Allergy Anaphylaxis Verified 08/22/23 13:16 Penicillins Allergy Anaphylaxis Verified 08/22/23 13:16 phenylephrine Allergy Anaphylaxis Verified 08/22/23 13:16 sulfamethoxazole Allergy Anaphylaxis Verified 08/22/23 13:16 [From Bactrim] trimethoprim [From Bactrim] Allergy Anaphylaxis Verified 08/22/23 13:16 Review of Systems Review of Systems: All systems as dictated in [facility] Past Medical History Medical History Depression Diarrhea Hypertension Nausea and vomiting in adult Surgical History Surgical History History of cholecystectomy Social History Social History Smoking status: Current every day smoker Tobacco type: e-cigarettes/vaping Alcohol intake: never Substance use: never Substance use type: does not use Living arrangements: with roommate(s) Spiritual care concerns: No Exam Narrative: GENERAL: Well-appearing, well-nourished, and in no acute distress. HEAD: Normocephalic, atraumatic. EYES: PERRLA and EOMI. ENT: Nares clear, no rhinorrhea or epistaxis. Mucous membranes moist. Oropharynx without tonsillar hypertrophy exudate or other lesions. NECK: Supple. No adenopathy or masses. CHEST: No respiratory distress. Clear to auscultation. No wheezes rales or rhonchi HEART: Regular rate and rhythm. No murmur heard. Normal peripheral pulses. ABDOMEN: Obese abdomen. Soft, nontender, nondistended, normal active bowel sounds. MSK: Normal range of motion. Mild nonpitting edema to the bilateral lower calves and feet. Mild tenderness to the calves bilaterally. No skin changes. Neurovascularly intact distally. Strong pulses. SKIN: Warm, dry, no rash. No erythema. NEURO: Alert and oriented x3. No focal deficits. PSYCH: Normal mood and affect. Course Vital Signs Vital signs: Vital Signs Temperature 98.2 F 08/22/23 13:09 Temperature 98 F 08/22/23 13:11 Pulse Rate 90 08/22/23 15:35 Respiratory Rate 18 08/22/23 15:35 Blood Pressure 128/83 08/22/23 15:35 Pulse Oximetry 100 08/22/23 15:35 Medical Decision Making MDM Narrative Medical decision making narrative: This is a 23-year-old female who presents to the ED for chief complaint of lower leg swelling. She was seen here recently for similar symptoms. She had a full workup at that time including laboratory work, chest CT. Her workup was grossly negative. The only thing I can add today is in ultrasound of the bilateral lower legs to rule out clots. Doppler scans of the legs are negative. Advised that she continue with compression stockings and follow up with her PCP for this
[2023-08-22 15:35] VITALS: BP 128/83; PULSE 90; RESP 18; O2SAT 100
== END 2023-08-22 15:37 | disposition home or self-care (01) ==
PROVIDERS: Emergency Provider Physician Assistant; PCP Nurse Practitioner Family
DX: R22.43 Localized swelling, mass and lump, lower limb, bilateral (principal); I10 Essential (primary) hypertension; F32.A Depression, unspecified; Z90.49 Acquired absence of other specified parts of digestive tract; F17.290 Nicotine dependence, other tobacco product, uncomplicated
CPT/HCPCS: 93970; 99284

== ENCOUNTER 2023-11-12 15:51 | Emergency (ER) | payer OTHER, SELFPAY ==
--- NOTE | ~2023-11-12 | CT_ITS ---
EXAMINATION: CT abdomen pelvis w con DATE: 11/12/2023 19:44 INDICATION: Left flank pain. TECHNIQUE: Computed tomography (CT) of the abdomen and pelvis was performed with 100 mL Omnipaque 350 intravenous contrast. Automated exposure control and iterative reconstruction technique were employe d. The dose-length product was 1568.26 mGy-cm. COMPARISON: CT abdomen and pelvis 12/24/2021 FINDINGS: The visualized portions of the lung bases are clear without pneumonia or pleural effusion. The heart size is normal. No pericardial effusion. Calcified left hilar lymph nodes are consistent wi th old granulomatous disease. The liver is normal. There are changes of cholecystectomy. The spleen, pancreas, adrenal glands, and right kidney are normal. There is urothelial thickening and enhancement in left ureter, consistent with pyelitis. There is fat stranding in the retroperitoneum, consistent with edema. There are no dilated loops of bowel. The appendix is not visualized. There are no patholo gically enlarged lymph nodes. There is physiologic fluid in the pelvis. There is mild thoracic spondy losis. IMPRESSION: 1. Left-sided pyelitis. Reviewed, dictated and finalized at location E. CHANGE CREW MEMBER IMPRESSION: 1. Left-sided pyelitis.
[2023-11-12 16:27] VITALS: BP 124/55; PULSE 99; RESP 18; TEMP 36.1; O2SAT 100
[2023-11-12 17:14] LABS: Appearance Urine Cloudy (Clear); Bacteria Urine 1+ /hpf; Bilirubin Urine Negative (Negative); Blood Urine Trace (Negative); Color Urine Yellow (Yellow); Glucose Urine UA Negative (Negative); Ketones Urine Negative (Negative); Leukocyte Esterase Ur 2+ LEU/UL (Negative); Nitrate Urine Negative (Negative); Non Pathogenic Casts 0-2; Protein Urine 1+ mg/dL (Negative); Specific Grav Ur 1.015 (1.001-1.035); Squamous Epithelial Cell Urine Occasional /hpf (Few); Urobilinogen Urine 0.2 mg/dL (<2.0); WBC Urine 51-100 /hpf
[2023-11-12 17:16] LABS: Add Urine Microscopic? YES
--- NOTE | 2023-11-12 18:00 | ED.FEMALEGU ---
HPI - Female Genitourinary General Chief complaint: Urogenital-Female <Stephon Kennedy APRN - Last Filed: 11/12/23 18:09> Stated complaint: BLOOD IN URINE, LBP <Stephon Kennedy APRN - Last Filed: 11/12/23 18:09> Time Seen by Provider: 11/12/23 18:03 <Stephon Kennedy APRN - Last Filed: 11/12/23 18:09> Focused HPI: Jessy is a 23-year-old female patient presenting to the ER today with complaints of blood in her urine, pain in her pelvis after urination, and left-sided flank pain. She reports that the pain is so bad is difficult for her to walk. Was recently treated for a UTI 2 weeks ago and finished the medications. General: Well-developed, obese, in no apparent distress. Head: Normocephalic, atraumatic. Cardio: Regular rate and rhythm, s1 and s2 normal, no murmur appreciated. Resp: Clear to auscultation bilaterally, no rhonchi, rales, wheezing or rubs. Abdomen: Soft, pliable, bowel sounds present in all quadrants, suprapubic and lower abdomen tender to palpation, no organomegly, positive left CVAT tenderness. Patient screened in triage and initial orders placed. Additional care and disposition to be based upon diagnostic testing and treatment. <Stephon Kennedy APRN - Last Filed: 11/12/23 18:09> History of Present Illness HPI Narrative: Patient is female at but currently transitioning through use of hormones and identifies as male (pronouns he/him/his). Having 2 episodes of hematuria in the past 4 days. Associated with left flank pain and left sided pelvic pain that radiates to groin. No history of STIs. No vaginal discharge. No history kidney stones. Pain with urination as well as urinary urgency and frequency. LBM at 1 pm, soft but this is normal consistency after cholecystectomy. Nauseated but hasn't vomited. LMP approximately 2 months ago. Restarted testosterone 0.25 weekly approximately 6 weeks ago (last dose Thursday). <Li Monet MD - Last Filed: 11/13/23 08:30> Related Data Home medications: Home Medications Medication Instructions Recorded Confirmed buspirone 5 mg tablet 7.5 mg PO DAILY 01/08/21 10/07/22 cholecalciferol (vitamin D3) 1,250 1,250 mcg PO WEEKLY 01/08/21 10/07/22 mcg (50,000 unit) capsule vitamin B complex (B 1 tablet PO DAILY 09/22/22 10/07/22 Complex-Vitamin B12 tablet) <Stephon Kennedy APRN - Last Filed: 11/12/23 18:09> Allergies/Adverse reactions: Allergies Allergy/AdvReac Type Severity Reaction Status Date / Time brompheniramine Allergy Anaphylaxis Verified 08/22/23 13:16 Penicillins Allergy Anaphylaxis Verified 08/22/23 13:16 phenylephrine Allergy Anaphylaxis Verified 08/22/23 13:16 sulfamethoxazole Allergy Anaphylaxis Verified 08/22/23 13:16 [From Bactrim] trimethoprim [From Bactrim] Allergy Anaphylaxis Verified 08/22/23 13:16 <Stephon Kennedy APRN - Last Filed: 11/12/23 18:09> [facility] Past Medical History Medical History: Medical History (Updated 11/13/23 @ 08:20 by Li Monet MD) Depression Diarrhea Hypertension <Stephon Kennedy APRN - Last Filed: 11/12/23 18:09> Surgical History Surgical History: Surgical History History of cholecystectomy <Stephon Kennedy APRN - Last Filed: 11/12/23 18:09> Social History Social History: Social History (Updated 11/13/23 @ 08:18 by Li Monet MD) Smoking status: Current every day smoker Tobacco type: e-cigarettes/vaping Alcohol intake: never Substance use: never Substance use type: does not use Living arrangements: with roommate(s) Additional gender identity comments: Pronouns he/him/his Spiritual care concerns: No <Stephon Kennedy APRN - Last Filed: 11/12/23 18:09> Exam Const: General: healthy appearing, no acute distress and alert; No diaphoretic or ill appearing <Li Monet MD - Last Filed: 11/13/23 08:3
[2023-11-12 18:16] LABS: Basophils Absolute Auto 0.1 K/mm3 (0.0-0.1); Basophils Percent Auto 0.5 % (0.2-1.2); Eosinophils Absolute Auto 0.2 K/mm3 (0-0.3); Eosinophils Percent Auto 1.2 % (0-4.4); Hematocrit 47.1 % (37.0-47.0); Hemoglobin 15.4 g/dL (12.0-15.0); Immature Granulocyte Absolute 0.07 K/mm3 (0.00-0.031); Immature Granulocyte Percent A 0.4 % (0-0.5); Lymphocytes Absolute Auto 2.13 K/mm3 (0.9-3.2); Lymphocytes Percent Auto 12.7 % (18.3-44.2); Mean Corpuscular HGB Conc 32.7 g/dl (32-36); Mean Corpuscular Hemoglobin 28.7 pg (26-34); Mean Corpuscular Volume 87.9 fl (80-100); Mean Platelet Volume 10.5 fl (7.4-10.4); Monocytes Absolute Auto 0.9 K/mm3 (0.1-0.6); Monocytes Percent Auto 5.5 % (2.6-8.5); Neutrophils Absolute Auto 13.4 K/mm3 (1.3-6.7); Neutrophils Percent Auto 79.7 % (45.5-73.1); Platelet Count Result 377 k/mm3 (150-375); Red Blood Count 5.36 M/mm3 (4.2-5.4); Red Cell Distribution Width 14.5 % (11.5-14.5); White Blood Count 16.8 K/mm3 (4.5-10.0)
[2023-11-12 18:29] LABS: Alanine Aminotransferase 35 U/L (6-35); Albumin Level 4.2 g/dL (3.5-5.1); Alkaline Phosphatase 94 U/L (38-126); Anion Gap 7 mmol/L (8-16); Aspartate Amino Transferase 34 U/L (14-36); Bilirubin,Total 1.1 mg/dL (0.2-1.3); Blood Urea Nitrogen 15 mg/dL (7-17); Calcium 9.1 mg/dL (8.4-10.2); Carbon Dioxide 29 mmol/L (22-30); Chloride 101 mmol/L (98-107); Estimated Glomerular Filt Rate > 60; Glucose 97 mg/dL (65-110); Sodium 137 mmol/L (137-145)
[2023-11-12] MEDS: HYDROcodone/acetaminophen (*CRX) 5-325 MG TABLET 1 TAB PO (19:27)
[2023-11-12] MEDS: ACETAMINOPHEN 325 MG TABLET 650 MG PO (19:27)
[2023-11-12] MEDS: ONDANSETRON INJ 4 MG/2 ML VIAL IV PUSH (19:28)
[2023-11-12 21:10] VITALS: BP 122/65; PULSE 85; RESP 18; TEMP 36.8; O2SAT 100
== END 2023-11-12 21:14 | disposition home or self-care (01) ==
PROVIDERS: Nurse Practitioner Family; Emergency Provider Student in an Organized Health Care Education/Training Program
DX: N12 Tubulo-interstitial nephritis, not specified as acute or chronic (principal); I10 Essential (primary) hypertension; F17.290 Nicotine dependence, other tobacco product, uncomplicated
CPT/HCPCS: 36415; 74177; 80053; 81001; 81025; 85025; 87077; 87086; 87088; 87186; 96361; 96374; 99284; A9270; J0696; J2405; Q9967

== ENCOUNTER 2023-12-31 13:14 | Emergency (ER) | payer OTHER, SELFPAY ==
[2023-12-31] VITALS (15 sets, daily range): BP systolic 129–146; BP diastolic 51–96; PULSE 69–110; RESP 13–20; TEMP 36.6; O2SAT 96–100
--- NOTE | ~2023-12-31 | CT_ITS ---
EXAMINATION: CT abdomen pelvis wo con DATE: 12/31/2023 20:02 INDICATION: Hematuria. TECHNIQUE: Computed tomography (CT) of the abdomen and pelvis was performed without intravenous contr ast. Automated exposure control and iterative reconstruction technique were employed. The dose-length product was 1498.78 mGy-cm. COMPARISON: CT abdomen and pelvis 11/12/2023 FINDINGS: The visualized portions of the lung bases are clear without pneumonia or pleural effusion. The heart size is normal. No pericardial effusion. Calcifications in the liver and spleen are consist ent with old granulomatous disease. There are changes of cholecystectomy. The pancreas, adrenal gland s, and kidneys are normal. There is no urolithiasis. There are no dilated loops of bowel. The appendi x is not visualized. There are no pathologically enlarged lymph nodes. There is no free intraperitone al fluid. There is mild lumbar spondylosis. IMPRESSION: 1. No urolithiasis. Reviewed, dictated and finalized at location E. IMPRESSION: 1. No urolithiasis.
--- NOTE | ~2023-12-31 | XR_ITS ---
EXAMINATION: XR chest 2V 12/31/2023 13:56 INDICATION: Chest pain and shortness of breath PROCEDURE: 2 view chest COMPARISON: 08/20/2023 FINDINGS: The lungs are clear. The cardiomediastinal silhouette is within normal limits. There are no pleural effusions. There is no pneumothorax suspected. There are cholecystectomy clips. IMPRESSION: 1: NO ACUTE CARDIOPULMONARY DISEASE. Reviewed, dictated and finalized at location B.
--- NOTE | 2023-12-31 13:16 | ECG_ITS ---
SEE SCANNED COPY FOR CONFIRMED REPORT MTDD
[2023-12-31 13:52] LABS: Basophils Absolute Auto 0.1 K/mm3 (0.0-0.1); Basophils Percent Auto 0.5 % (0.2-1.2); Eosinophils Absolute Auto 0.2 K/mm3 (0-0.3); Eosinophils Percent Auto 1.8 % (0-4.4); Hematocrit 53.1 % (37.0-47.0); Hemoglobin 17.3 g/dL (12.0-15.0); Immature Granulocyte Absolute 0.05 K/mm3 (0.00-0.031); Immature Granulocyte Percent A 0.4 % (0-0.5); Lymphocytes Absolute Auto 2.62 K/mm3 (0.9-3.2); Lymphocytes Percent Auto 20.1 % (18.3-44.2); Mean Corpuscular HGB Conc 32.6 g/dl (32-36); Mean Corpuscular Hemoglobin 28.5 pg (26-34); Mean Corpuscular Volume 87.3 fl (80-100); Mean Platelet Volume 11.1 fl (7.4-10.4); Monocytes Absolute Auto 0.7 K/mm3 (0.1-0.6); Monocytes Percent Auto 5.4 % (2.6-8.5); Neutrophils Absolute Auto 9.4 K/mm3 (1.3-6.7); Neutrophils Percent Auto 71.8 % (45.5-73.1); Platelet Count Result 337 k/mm3 (150-375); Red Blood Count 6.08 M/mm3 (4.2-5.4)
[2023-12-31 14:03] LABS: INR 0.9; Prothrombin Time 12.2 Seconds (11.1-14.7)
[2023-12-31 14:04] LABS: Partial Thromboplastin Time 30.5 Seconds (22.3-36.8)
[2023-12-31 14:31] LABS: Alanine Aminotransferase 46 U/L (6-35); Albumin Level 4.7 g/dL (3.5-5.1); Alkaline Phosphatase 88 U/L (38-126); Anion Gap 8 mmol/L (4-12); Aspartate Amino Transferase 50 U/L (14-36); Bilirubin,Total 0.9 mg/dL (0.2-1.3); Blood Urea Nitrogen 12 mg/dL (7-17); Calcium 9.7 mg/dL (8.4-10.2); Carbon Dioxide 28 mmol/L (22-30); Chloride 100 mmol/L (98-107); Estimated CRCL calculation 118 ml/min; Estimated Glomerular Filt Rate > 60; Glucose 128 mg/dL (65-110); Lipase 62 U/L (23-300); Sodium 136 mmol/L (137-145)
[2023-12-31 14:43] LABS: Troponin I < 0.012 ng/mL (0.000-0.034)
[2023-12-31 14:54] LABS: D Dimer 0.44 ug/mL (<0.48)
--- NOTE | 2023-12-31 15:37 | ED.CHESTPAIN ---
HPI - Chest Pain General Chief Complaint: Chest Pain Stated Complaint: CP, SOB Time Seen by Provider: 12/31/23 14:37 History of Present Illness HPI narrative: Patient is a 23-year-old female to male transgender, he prefers pronouns he/him, identifies with the name Tian, history of asthma, hypertension, anxiety, depression here with hot flashes and chest pain. Patient states that the shortness of breath, flushing, sweating began a few days ago. It seems to be worsening. He has checked his temperature at home and has never noted to have a fever. Today he began having left-sided chest pain. He does note that the chest pain seems worse with taking deep breaths. Denies cough. Denies sick contacts. He has had some nausea and loss of appetite, no associated abdominal pain or diarrhea. He did present to the [place] urgent care earlier today where they did a rapid viral swab and sent him into the emergency department for further evaluation. He has taken some ibuprofen at home with minimal help of his symptoms. Denies any prior cardiac history. He does use testosterone supplementation, last dose was given via subcu injection in his leg about 1 week ago. He has not noted any sores to the area where he typically uses testosterone. He states that he has been on this for approximately 6 months this time and previously on it for a long period of time with a brief episode of not using testosterone due to insurance issues. No sore throat, no urinary symptoms. Related Data Home Medications Medication Instructions Recorded Confirmed lisinopril 5 mg tablet 5 mg PO BID 12/31/23 12/31/23 testosterone cypionate 200 mg/mL 0.25 mg WEEKLY 12/31/23 12/31/23 intramuscular oil Allergies Allergy/AdvReac Type Severity Reaction Status Date / Time brompheniramine Allergy Anaphylaxis Verified 12/31/23 14:04 Penicillins Allergy Anaphylaxis Verified 12/31/23 14:04 phenylephrine Allergy Anaphylaxis Verified 12/31/23 14:04 sulfamethoxazole Allergy Anaphylaxis Verified 12/31/23 14:04 [From Bactrim] trimethoprim [From Bactrim] Allergy Anaphylaxis Verified 12/31/23 14:04 Review of Systems Review of Systems: All systems reviewed & are unremarkable except as noted in HPI and below PMFSH Past Medical History Medical History (Updated 12/31/23 @ 20:15 by Radha Chan MD) Depression Diarrhea Hypertension Surgical History Surgical History History of cholecystectomy Social History Social History (Updated 11/13/23 @ 08:18 by Li Monet MD) Smoking status: Current every day smoker Tobacco type: e-cigarettes/vaping Alcohol intake: never Substance use: never Substance use type: does not use Living arrangements: with roommate(s) Additional gender identity comments: Pronouns he/him/his Spiritual care concerns: No Exam Narrative: GENERAL: Well-appearing, well-nourished, and in no acute distress. HEAD: Normocephalic, atraumatic. EYES: PERRLA and EOMI. ENT: Nares clear. Mucous membranes moist. Pharynx appears normal. NECK: Supple. CHEST: Clear to auscultation. No respiratory distress. HEART: Regular rate and rhythm. Normal peripheral pulses. ABDOMEN: Soft, nontender, nondistended. EXTREMITIES: Normal range of motion. No edema. SKIN: Warm, dry, no rash. No sores or abscesses appreciated. NEURO: No focal deficits. Alert and oriented x3. PSYCH: Normal mood and affect. Course Course Emergency Course: Chart review performed. Patient sent to the ED with CP, SOB, feeling hot, sweaty and shakey. Triage vitals initially show HTN, tachycardia, O2 saturation of 100%, RR of 20. Protocol workup reviewed. WBC of 13.0, Hgb of 17.3, electrolytes normal, mild elevations in AST/ALT, troponin normal x1. D-dimer negative. Patient seen evaluated, appears to be uncomfortable however not tachypneic and is not appear to be in any acute distress. Suspect he likely h
[2023-12-31] MEDS: IPRATROPIUM 0.5 MG/ALBUTEROL SULFATE 2.5 MG AMPUL.NEB 3 ML INHALATION (16:00)
[2023-12-31] MEDS: ACETAMINOPHEN 500 MG TABLET 1000 MG PO (16:20)
[2023-12-31] MEDS: LACTATED RINGERS 1,000 ML 999 ML IV CONT (16:20)
[2023-12-31] MEDS: ONDANSETRON INJ 4 MG/2 ML VIAL IV PUSH (16:21)
[2023-12-31 17:05] LABS: CRP 1.5 mg/dL (<1.0)
[2023-12-31 17:22] LABS: Troponin I < 0.012 ng/mL (0.000-0.034)
[2023-12-31 17:28] LABS: Influenza A QL RT-PCR Negative (Negative); Influenza B QL RT-PCR Negative (Negative); RSV RNA, RT-PCR Negative (Negative); SARS-CoV-2 RNA PCR Negative (Negative)
[2023-12-31 17:34] LABS: Lactic Acid Reflex 1.6 mmol/L (0.7-2.0)
[2023-12-31 18:34] LABS: Appearance Urine Turbid (Clear); Bacteria Urine 3+ /hpf; Bilirubin Urine Negative (Negative); Blood Urine Negative (Negative); Color Urine Yellow (Yellow); Glucose Urine UA Negative (Negative); Ketones Urine Trace mg/dL (Negative); Leukocyte Esterase Ur 2+ LEU/UL (Negative); Need Manual Microscopic Reviewed; Nitrate Urine Negative (Negative); Protein Urine 1+ mg/dL (Negative); RBC Urine >100 /hpf (0-2); Squamous Epithelial Cell Urine Few /hpf (Few); WBC Urine 51-100 /hpf (0-3)
[2023-12-31 18:35] LABS: Specific Grav Ur 1.034 (1.001-1.035)
[2023-12-31 18:36] LABS: Add Urine Microscopic? YES
--- NOTE | 2023-12-31 19:38 | ECG_ITS ---
SEE SCANNED COPY FOR CONFIRMED REPORT MTDD
[2023-12-31 20:08] LABS: Troponin I < 0.012 ng/mL (0.000-0.034)
== END 2023-12-31 20:25 | disposition home or self-care (01) ==
PROVIDERS: Student in an Organized Health Care Education/Training Program; Emergency Provider Student in an Organized Health Care Education/Training Program
DX: N39.0 Urinary tract infection, site not specified (principal); R31.9 Hematuria, unspecified; R07.89 Other chest pain; Z20.822 Contact with and (suspected) exposure to COVID-19; J45.909 Unspecified asthma, uncomplicated; I10 Essential (primary) hypertension; F17.290 Nicotine dependence, other tobacco product, uncomplicated; Z90.49 Acquired absence of other specified parts of digestive tract; Z79.890 Hormone replacement therapy
CPT/HCPCS: 36415; 71046; 74176; 80053; 81001; 81025; 83605; 83690; 84484; 85025; 85380; 85610; 85730; 86140; 87040; 87086; 87088; 87637; 93005; 94640; 96361; 96365; 96375; 99284; A9270; J0696; J2405; J7120

== ENCOUNTER 2024-04-30 16:11 | Emergency (ER) | payer OTHER, SELFPAY ==
[2024-04-30 16:56] VITALS: BP 157/78; PULSE 110; RESP 18; TEMP 36.7; O2SAT 100
--- NOTE | 2024-04-30 17:17 | ED.FEMALEGU ---
HPI - Female Genitourinary General Chief complaint: Urogenital-Female Stated complaint: Poss uti and kidney infection Time Seen by Provider: 04/30/24 17:10 Source: patient Mode of arrival: ambulatory Limitations: no limitations History of Present Illness HPI Narrative: 23 year old female presents to [facility] care with complaints of some left sided flank pain which began today with history of reoccurring urinary tract infections. Patient reports also concern for having several small BM's daily. Patient reports that she was recently informed of having elevated liver enzymes. Patient reports some urinary burning with some frequency and urgency, denies vaginal discharge or bleeding. MD elicited complaint: UTI Pertinent past history: other (UTI's) Onset (ago): day(s) (today) Location of symptoms: flank (left) Severity scale (1-10): 8 Quality of pain: aching Vaginal discharge: none Vaginal bleeding: none Urinary symptoms: Flank Pain Exacerbating factors: urination Related Data Home Medications Medication Instructions Recorded Confirmed lisinopril 5 mg tablet 5 mg PO BID 12/31/23 04/30/24 testosterone cypionate 200 mg/mL 0.25 mg WEEKLY 12/31/23 04/30/24 intramuscular oil hydrochlorothiazide 12.5 mg tablet 12.5 mg PO DAILY 04/30/24 04/30/24 Allergies Allergy/AdvReac Type Severity Reaction Status Date / Time brompheniramine Allergy Anaphylaxis Verified 05/01/24 13:20 Penicillins Allergy Anaphylaxis Verified 05/01/24 13:20 phenylephrine Allergy Anaphylaxis Verified 05/01/24 13:20 sulfamethoxazole Allergy Anaphylaxis Verified 05/01/24 13:20 [From Bactrim] trimethoprim [From Bactrim] Allergy Anaphylaxis Verified 05/01/24 13:20 Review of Systems Review of Systems: CONSTITUTIONAL: Denies fever, chills, or sweats. CARDIOVASCULAR: Denies chest pain, palpitations, or edema. RESPIRATORY: Denies cough or dyspnea. GASTROINTESTINAL: Denies abdominal pain, nausea, vomiting, or diarrhea. GENITOURINARY: Reports dysuria, frequency, urgency. left flank pain , no visible hematuria. SKIN: Denies rash or itching. MUSCULOSKELETAL: Denies back pain or myalgia. Denies CVA tenderness NEUROLOGIC: Denies headache All systems reviewed & are unremarkable except as noted in HPI and below PMFSH Past Medical History Medical History (Updated 08/25/24 @ 22:36 by Ashwini Hollis NP) Depression Diarrhea Hypertension Surgical History Surgical History History of cholecystectomy Social History Social History (Updated 11/13/23 @ 08:18 by Li Monet MD) Smoking status: Current every day smoker Tobacco type: e-cigarettes/vaping Alcohol intake: never Substance use: never Substance use type: does not use Living arrangements: with roommate(s) Additional gender identity comments: Pronouns he/him/his Spiritual care concerns: No Comments At time of signature, agree with nursing past medical, surgical, social and family history. There is no relevant family history pertinent to the presenting complaint Exam Narrative: GENERAL: Well-appearing, well-nourished, obese , no acute distress. HEAD: Normocephalic, atraumatic. NECK: Supple.no lymphadenopathy CHEST: Clear to auscultation. No respiratory distress.SAO2 100% on room air HEART: Regular rate and rhythm. No murmur heard. Normal peripheral pulses. ABDOMEN: Soft, nontender, nondistended, normal active bowel sounds. left CVA tenderness no radiation of pain, some dysuria, frequency and urgency,with urine noted cloudy EXTREMITIES: Normal range of motion. No edema. SKIN: Warm, dry, no rash. NEURO: No focal deficits. Alert and oriented x3. Course Course Emergency Course: Patient is aware of diagnosis, understands and agrees to treatment plan.? Anticipatory guidance given.? Patient agrees to follow-up as directed and is aware of reasons to seek care at the emergency department. Portions of this re
[2024-04-30 17:29] LABS: EDUAAPPEAR Cloudy; EDUABILI 1+; EDUABLOOD 2+; EDUACOLOR1 Yellow; EDUAGLUCOSE Negative; EDUAKETONE Negative; EDUALEUKO Negative; EDUANITRATE Negative; EDUAPH 5.5; EDUAPROTEIN 1+
== END 2024-04-30 17:35 | disposition home or self-care (01) ==
PROVIDERS: Emergency Provider Registered Nurse; PCP Internal Medicine
DX: N39.0 Urinary tract infection, site not specified (principal); F17.290 Nicotine dependence, other tobacco product, uncomplicated; I10 Essential (primary) hypertension
CPT/HCPCS: 81003; 87086; 87088; 99213; G0463

== ENCOUNTER 2024-05-01 12:59 | Emergency (ER) | payer OTHER, SELFPAY ==
[2024-05-01] VITALS (7 sets, daily range): BP systolic 114–152; BP diastolic 39–74; PULSE 70–106; RESP 16–20; TEMP 36.1–36.6; O2SAT 96–100
--- NOTE | ~2024-05-01 | XR_ITS ---
EXAMINATION: XR chest 2V Exam Date/Time: 05/01/2024 15:45 CDT HISTORY: right sided CP Comparison: 12/31/2023. RESULT: Lines, tubes, and devices: Cholecystectomy clips. Lungs and pleura: Clear. Cardiomediastinal silhouette: Stable. Other: No acute osseous or upper abdominal finding. IMPRESSION: No acute cardiopulmonary process. Reviewed, dictated and finalized at location K.
--- NOTE | ~2024-05-01 | CT_ITS ---
EXAMINATION: CT abdomen pelvis w con DATE: 05/01/2024 16:21 INDICATION: right upper quadrant pain TECHNIQUE: Computed tomography (CT) of the abdomen and pelvis was performed with 100 mL Omnipaque-350 intravenous contrast. Automated exposure control and iterative reconstruction technique were employe d. The dose-length product was 1565.08 mGy-cm. COMPARISON: 12/31/2023. FINDINGS: Lower thorax: Unremarkable Liver: Normal. Biliary/Gallbladder: Gallbladder is absent. No bile duct dilation. Pancreas: No mass or duct dilation. Spleen: Normal. Adrenals:No mass. Kidneys: No suspicious mass, obstructing stone, or hydronephrosis. GI tract: No small or large bowel dilation. Normal appendix. Mesentery/Peritoneum: No ascites, mass, or free air. Retroperitoneum: No mass. Pelvis: Pelvic organs are within normal limits. Soft Tissues: Soft tissues and body wall unremarkable. Bones: No acute osseous finding. IMPRESSION: No acute abdominopelvic process detected. Reviewed, dictated and finalized at location K.
[2024-05-01 14:46] LABS: Basophils Absolute Auto 0.1 K/mm3 (0.0-0.1); Basophils Percent Auto 0.8 % (0.2-1.2); Eosinophils Absolute Auto 0.4 K/mm3 (0-0.3); Eosinophils Percent Auto 2.4 % (0-4.4); Hemoglobin 16.9 g/dL (12.0-15.0); Immature Granulocyte Absolute 0.07 K/mm3 (0.00-0.031); Immature Granulocyte Percent A 0.5 % (0-0.5); Lymphocytes Absolute Auto 3.26 K/mm3 (0.9-3.2); Lymphocytes Percent Auto 21.5 % (18.3-44.2); Mean Corpuscular HGB Conc 33.1 g/dl (32-36); Mean Corpuscular Hemoglobin 28.3 pg (26-34); Mean Corpuscular Volume 85.4 fl (80-100); Mean Platelet Volume 10.9 fl (7.4-10.4); Monocytes Percent Auto 6.5 % (2.6-8.5); Neutrophils Absolute Auto 10.3 K/mm3 (1.3-6.7); Neutrophils Percent Auto 68.3 % (45.5-73.1); Platelet Count Result 381 k/mm3 (150-375); Red Blood Count 5.97 M/mm3 (4.2-5.4); Red Cell Distribution Width 14.6 % (11.5-14.5); White Blood Count 15.1 K/mm3 (4.5-10.0)
[2024-05-01 14:58] LABS: Alanine Aminotransferase 53 U/L (6-35); Albumin Level 4.6 g/dL (3.5-5.1); Alkaline Phosphatase 89 U/L (38-126); Anion Gap 12 mmol/L (4-12); Aspartate Amino Transferase 37 U/L (14-36); Bilirubin,Total 0.8 mg/dL (0.2-1.3); Blood Urea Nitrogen 14 mg/dL (7-17); Calcium 9.2 mg/dL (8.4-10.2); Carbon Dioxide 26 mmol/L (22-30); Chloride 96 mmol/L (98-107); Estimated CRCL calculation 118 ml/min; Estimated Glomerular Filt Rate > 60; Glucose 101 mg/dL (65-110); Lipase 110 U/L (23-300); Potassium 3.9 mmol/L (3.4-5.0); Sodium 134 mmol/L (137-145)
--- NOTE | 2024-05-01 15:06 | ECG_ITS ---
Test Date: 2024-05-01 15:21:10 Measurements Intervals [place] Rate: 82 P: 43 ID: [id number] QRS: 23 QRSD: 98 T: 18 QT: 359 QTc: 421 Interpretive Statements SINUS RHYTHM WITH SINUS ARRHYTHMIA WITHIN NORMAL LIMITS No previous ECG available for comparison Electronically Signed On 05-03-2024 07:10:40 CDT by Vin Bearden M.D.
--- NOTE | 2024-05-01 15:09 | ED.ABDPAIN ---
HPI - Abdominal Pain General Chief Complaint: Abdominal Pain Stated Complaint: abdominal pain Time Seen by Provider: 05/01/24 14:30 Source: patient Mode of arrival: ambulatory Limitations: no limitations History of Present Illness HPI narrative: This is a 23-year-old female that presents to the emergency department for right-sided upper abdominal pain. Reports associated nausea, vomiting and loose stools. Reports she recently found out she had elevated liver enzymes. She has had worsening pain which has made it difficult for her to eat. Reports she is currently being treated for a UTI. Denies fevers. Related Data Home Medications Medication Instructions Recorded Confirmed lisinopril 5 mg tablet 5 mg PO BID 12/31/23 04/30/24 testosterone cypionate 200 mg/mL 0.25 mg WEEKLY 12/31/23 04/30/24 intramuscular oil hydrochlorothiazide 12.5 mg tablet 12.5 mg PO DAILY 04/30/24 04/30/24 Allergies Allergy/AdvReac Type Severity Reaction Status Date / Time brompheniramine Allergy Anaphylaxis Verified 05/01/24 13:20 Penicillins Allergy Anaphylaxis Verified 05/01/24 13:20 phenylephrine Allergy Anaphylaxis Verified 05/01/24 13:20 sulfamethoxazole Allergy Anaphylaxis Verified 05/01/24 13:20 [From Bactrim] trimethoprim [From Bactrim] Allergy Anaphylaxis Verified 05/01/24 13:20 Review of Systems Review of Systems: CONSTITUTIONAL: Denies fever CARDIOVASCULAR: Reports chest pain RESPIRATORY: Reports dyspnea. GASTROINTESTINAL: Reports abdominal pain, nausea, vomiting, and diarrhea. All systems reviewed & are unremarkable except as noted in HPI and below PMFSH Past Medical History Medical History (Updated 05/01/24 @ 17:36 by Chiqui Cardenas PA-C) Depression Diarrhea Hypertension Surgical History Surgical History History of cholecystectomy Social History Social History (Updated 11/13/23 @ 08:18 by Li Monet MD) Smoking status: Current every day smoker Tobacco type: e-cigarettes/vaping Alcohol intake: never Substance use: never Substance use type: does not use Living arrangements: with roommate(s) Additional gender identity comments: Pronouns he/him/his Spiritual care concerns: No Exam Narrative: GENERAL: Well-appearing, well-nourished, and in no acute distress. HEAD: Normocephalic, atraumatic. EYES: EOMI. CHEST: Clear to auscultation. No respiratory distress. No wheezes rales or rhonchi HEART: Regular rate and rhythm. No murmur heard. Normal peripheral pulses. ABDOMEN: Soft, nontender, nondistended, normal active bowel sounds. EXTREMITIES: Normal range of motion. No edema. SKIN: Warm, dry, no rash. NEURO: No focal deficits. Alert and oriented x3. PSYCH: Normal mood and affect Course Course Emergency Course: Patient updated on workup. Resting comfortably Vital Signs Vital signs: Vital Signs Temperature 96.9 F L 05/01/24 13:16 Pulse Rate 106 H 05/01/24 13:16 Respiratory Rate 20 05/01/24 13:16 Blood Pressure 149/74 H 05/01/24 13:16 Pulse Oximetry 100 05/01/24 13:16 Oxygen Delivery Room Air 05/01/24 13:16 Temperature 97.9 F 05/01/24 15:09 Pulse Rate 82 05/01/24 15:09 Respiratory Rate 16 05/01/24 15:09 Blood Pressure 114/48 L 05/01/24 15:09 Pulse Oximetry 100 05/01/24 15:09 Oxygen Delivery Room Air 05/01/24 13:16 MDM - Abdominal Pain MDM Narrative Medical decision making narrative: This is a 23 year old female that presents to the ER for right sided upper abdominal pain/ chest pain. Ongoing over the last week. Reporting associated vomiting and diarrhea. She is afebrile and nontoxic appearing. Her vitals are stable. CBC with leukocytosis to 15.1. Also shows hemoconcentration. Metabolic panel with mild transaminitis. Lipase is normal. Chest x-ray without acute cardiopulmonary abnormality. EKG without concerning changes and baseline troponin is negative
[2024-05-01 15:24] LABS: Add Urine Microscopic? YES; Appearance Urine Cloudy (Clear); Bacteria Urine 2+ /hpf; Bilirubin Urine Negative (Negative); Blood Urine Negative (Negative); Color Urine Yellow (Yellow); Glucose Urine UA Negative (Negative); Ketones Urine Negative (Negative); Leukocyte Esterase Ur 2+ LEU/UL (Negative); Need Manual Microscopic Reviewed; Nitrate Urine Negative (Negative); Non Pathogenic Casts 0-2; Protein Urine Negative (Negative); Specific Grav Ur 1.019 (1.001-1.035); Squamous Epithelial Cell Urine Few /hpf (Few); Urobilinogen Urine 0.2 mg/dL (<2.0); WBC Urine 21-50 /hpf (0-3); pH Urine 6.5 (5.0-9.0)
[2024-05-01 15:27] LABS: D Dimer < 0.27 ug/mL (<0.48)
[2024-05-01 15:36] LABS: Troponin I < 0.012 ng/mL (0.000-0.034)
[2024-05-01 15:38] LABS: BEDSIDEPREGUCG Negative
[2024-05-01] MEDS: ONDANSETRON INJ 4 MG/2 ML VIAL IV PUSH (15:41)
[2024-05-01] MEDS: SODIUM CHLORIDE 0.9% IV 1,000 ML 999 ML IV CONT (15:41)
[2024-05-01] MEDS: MORPHINE SULFATE (*CRX) 4 MG/ML INJ IV PUSH (15:41)
== END 2024-05-01 18:42 | disposition home or self-care (01) ==
PROVIDERS: Student in an Organized Health Care Education/Training Program; Emergency Provider Physician Assistant; PCP Internal Medicine
DX: N39.0 Urinary tract infection, site not specified (principal); I10 Essential (primary) hypertension; F17.290 Nicotine dependence, other tobacco product, uncomplicated; Z90.49 Acquired absence of other specified parts of digestive tract; Z79.899 Other long term (current) drug therapy
CPT/HCPCS: 36415; 71046; 74177; 80053; 81001; 81025; 83690; 84484; 85025; 85380; 93005; 96361; 96374; 96375; 99284; J2270; J2405; J7030; Q9967

== ENCOUNTER 2024-07-13 11:01 | Outpatient (CLI) | payer OTHER, SELFPAY ==
--- NOTE | ~2024-07-13 | XR_ITS ---
EXAMINATION: XR lumbar spine 2-3V DATE: 07/13/2024 11:24 INDICATION: Bilateral peripheral neuropathy of lower limbs. TECHNIQUE: 3 views of lumbar spine were obtained. COMPARISON: None. FINDINGS: Alignment is normal. Vertebral body heights are normal. Intervertebral disc heights are nor mal. The facet joints are unremarkable. Surgical clips in the right upper quadrant are likely from ch olecystectomy. IMPRESSION: 1. Normal lumbar spine. Reviewed, dictated and finalized at location A. [employer]ERED DIET TECHNICIAN IMPRESSION: 1. Normal lumbar spine.
== END 2024-07-13 11:02 | disposition home or self-care (01) ==
DX: G62.9 Polyneuropathy, unspecified (principal)
CPT/HCPCS: 72100

== ENCOUNTER 2024-07-25 10:13 | Outpatient (NON) | payer OTHER, SELFPAY | END 2024-07-25 10:14 | disposition home or self-care (01) | LOC: ANHLAB 10:14 | PROVIDERS: Visit Provider Nurse Practitioner Family | DX: R19.7 Diarrhea, unspecified (principal); R19.8 Other specified symptoms and signs involving the digestive system and abdomen | CPT/HCPCS: 82653; 83993 ==

== ENCOUNTER 2024-08-10 11:18 | Emergency (ER) | payer OTHER, SELFPAY ==
[2024-08-10] VITALS (9 sets, daily range): BP systolic 120–147; BP diastolic 63–109; PULSE 70–114; RESP 18–20; O2SAT 97–99
--- NOTE | ~2024-08-10 | CT_ITS ---
EXAMINATION: CT brain wo con DATE: 08/10/2024 13:07 INDICATION: Headache. Syncope. TECHNIQUE: Computed tomography (CT) of the head was performed without intravenous contrast. The mA wa s adjusted according to patient size. Iterative reconstruction technique was employed. The dose-lengt h product was 605.33 mGy-cm. COMPARISON: None FINDINGS: There is no intracranial hemorrhage, acute infarction, or abnormal intracranial mass lesion . The ventricles are normal in size. The paranasal sinuses are clear. The mastoid air cells are parvez l. The orbits are normal. IMPRESSION: 1. No acute cardiopulmonary disease. Reviewed, dictated and finalized at location A. [employer]CIAN CHIEF OF PATHOLOGY
--- NOTE | ~2024-08-10 | XR_ITS ---
EXAMINATION: XR chest 2V DATE: 08/10/2024 12:10 INDICATION: Chest pain. TECHNIQUE: Frontal and lateral views of the chest were obtained. COMPARISON: Chest 2 views 05/01/2024, CT abdomen and pelvis 05/01/2024 FINDINGS: There is no pneumonia, pleural effusion, or pneumothorax. The heart size is normal. Surgica l clips in the right upper quadrant are likely from cholecystectomy. IMPRESSION: 1. No acute cardiopulmonary disease. Reviewed, dictated and finalized at location A. COMM[employer]ICATION[employer] MECH[employer]IC
--- NOTE | 2024-08-10 11:20 | ECG_ITS ---
Test Date: 2024-08-10 11:24:45 Measurements Intervals [place] Rate: 106 P: 47 VT: 159 QRS: 14 QRSD: 107 T: 25 QT: 305 QTc: 405 Interpretive Statements SINUS TACHYCARDIA OTHERWISE NORMAL ECG Electronically Signed On 08-10-2024 14:59:26 [employer]IAN [employer] by Chad Del Rio M.D.
--- NOTE | 2024-08-10 11:27 | ED_ITS ---
HPI - Chest Pain General Chief Complaint: Chest Pain Stated Complaint: chest pain Time Seen by Provider: 08/10/24 11:26 Source: patient Mode of arrival: ambulatory Limitations: no limitations History of Present Illness HPI narrative: Patient is a 24 y/o female transitioning to male who presents to the ED with c/o CP. Patient reports on Thursday night, he experienced approx 30 minute episode of racing heart palpitations. States his pulse rate continued to increase and patient began having chest tightness, radiating to his left-sided neck and arm, as well as a headache. He thinks he may have had a syncopal episode that evening. Unclear if he fully lost consciousness. States he doesn't remember what happened. States since then, has been having persistent chest tightness/ discomfort, mild dizziness/lightheadedness, feeling off. has not tried anything for pain. Denies history of similar symptoms, previous syncope, previous palpitations, family history of heart disease or early cardiac . Patient is on testosterone therapy. Related Data Home Medications Medication Instructions Recorded Confirmed lisinopril 5 mg tablet 5 mg PO BID 12/31/23 07/22/24 testosterone cypionate 200 mg/mL 0.25 mg WEEKLY 12/31/23 07/22/24 intramuscular oil hydrochlorothiazide 12.5 mg tablet 12.5 mg PO DAILY 04/30/24 07/22/24 Allergies Allergy/AdvReac Type Severity Reaction Status Date / Time brompheniramine Allergy Anaphylaxis Verified 07/22/24 11:09 Penicillins Allergy Anaphylaxis Verified 07/22/24 11:09 phenylephrine Allergy Anaphylaxis Verified 07/22/24 11:09 sulfamethoxazole Allergy Anaphylaxis Verified 07/22/24 11:09 [From Bactrim] trimethoprim [From Bactrim] Allergy Anaphylaxis Verified 07/22/24 11:09 Review of Systems Review of Systems: All systems reviewed & are unremarkable except as noted in HPI. All systems reviewed & are unremarkable except as noted in HPI and below PMFSH Past Medical History Medical History Depression Diarrhea GERD (gastroesophageal reflux disease) Hiatal hernia Hypertension Rectal bleeding [place] Surgical History Surgical History History of cholecystectomy Social History Social History Smoking status: Current every day smoker Tobacco type: e-cigarettes/vaping Alcohol intake: never Substance use: never Substance use type: does not use Living arrangements: with roommate(s) Additional gender identity comments: Pronouns he/him/his Spiritual care concerns: No Exam Narrative: GENERAL: Well appearing, Morbidly obese with BMI of 48.2, non-toxic, in no acute distress. HEAD: Normocephalic, atraumatic. RESPIRATORY: Airway patent, respirations nonlabored. Clear to auscultation bilaterally, no rales, rhonchi, wheezing. CARDIOVASCULAR: Regular rate and rhythm without murmurs, rubs, or gallops. ABDOMINAL: Soft, nontender, nondistended. Normoactive BS. MUSCULOSKELETAL: Moves all extremities. No gross deformities. mild tenderness to palpation over midsternal chest wall. No peripheral edema. No calf tenderness. SKIN: Warm, dry, normal color. NEURO: A&O X3. Speech clear. Cranial nerves II-XII grossly intact. Steady gait. No ataxic movements. PSYCHIATRIC: Appropriate mood and affect. Normal interaction. Course Vital Signs Vital signs: Vital Signs Pulse Rate 114 H 08/10/24 11:21 Respiratory Rate 18 08/10/24 11:21 Blood Pressure 147/85 H 08/10/24 11:21 Pulse Oximetry 98 08/10/24 11:21 Oxygen Delivery Room Air 08/10/24 11:21 Pulse Rate 85 08/10/24 15:15 Respiratory Rate 19 08/10/24 15:15 Blood Pressure 124/63 08/10/24 15:15 Pulse Oximetry 98 08/10/24 15:15 Oxygen Delivery Room Air 08/10/24 11:27 MDM - Chest Pain MDM Narrative Medical decision making narrative: HEART score = 2 based on story and RFs (HTN, obesity). EKG w/o concerning ischemic changes. No interval changes on 3hr ekg. Trop negative X 2 D-dimer WNL Basic laboratory studies are otherwise unremarkable. Stable electrolytes. Stable magnesium. TSH WNL. Patient neurovascularly intact. CT brain negative. Orthostatic vital signs were evaluated and negative by blood pressure. Mild increase of heart rate. Patient given fluids in the ED. Hx concerning for possible dysrhythmia with palpitations/possible syncopal episode. There have not been any dysrhythmias noted on telemetry monitoring here, though patient may be candidate for Holter monitor. Discussed case with Dr. Sánchez, cardiology, agreed w/ plan for holter monitor and OP f/u in office. Discussed lab/imaging findings with patient, cardiology recommendations. Patient is in agreement this plan. Feels comfortable discharge home. Advised to follow closely with cardiology for further evaluation. Given strict return precautions. He agrees with plan. Discharged in stable condition. Vital signs stable at time of D/C. Medical Records Data Attestation: I reviewed the patient's medical records. Lab Data Attestation: I reviewed the patient's lab results. 08/10/24 11:26 08/10/24 11:26 Labs: Lab Results 08/10/24 08/10/24 Range/Units 11:26 14:40 WBC 11.3 H (4.5-10.0) K/mm3 RBC 5.33 (4.2-5.4) M/mm3 Hgb 15.2 H (12.0-15.0) g/dL Hct 46.5 (37.0-47.0) % MCV 87.2 (80-100) fl MCH 28.5 (26-34) pg MCHC 32.7 (32-36) g/dl RDW 14.6 H (11.5-14.5) % Plt Count 307 (150-375) k/mm3 MPV 11.0 H (7.4-10.4) fl Immature Gran % (Auto) 0.4 (0-0.5) % Neut % (Auto) 70.2 (45.5-73.1) % Lymph % (Auto) 19.7 (18.3-44.2) % [place] % (Auto) 7.1 (2.6-8.5) % Eos % (Auto) 2.1 (0-4.4) % Baso % (Auto) 0.5 (0.2-1.2) % Lymph # (Auto) 2.22 (0.9-3.2) K/mm3 [place]gard # (Auto) 0.8 H (0.1-0.6) K/mm3 Eos # (Auto) 0.2 (0-0.3) K/mm3 Baso # (Auto) 0.1 (0.0-0.1) K/mm3 Abs Immat Gran (auto) 0.04 H (0.00-0.031) K/mm3 Absolute Neuts (auto) 7.9 H (1.3-6.7) K/mm3 Absolute Nucleated RBC 0.000 (0.0-0.012) K/mm3 Nucleated RBC % 0.0 (0.0-0.2) % PT 12.2 (11.1-14.7) Seconds INR 0.9 APTT 35.6 (22.3-36.8) Seconds D-Dimer < 0.27 (<0.48) ug/mL Sodium 138 (137-145) mmol/L Potassium 3.6 (3.4-5.0) mmol/L Chloride 106 (98-107) mmol/L Carbon Dioxide 27 (22-30) mmol/L Anion Gap 5 (4-12) mmol/L BUN 13 (7-17) mg/dL Creatinine 1.10 H (0.7-1.0) mg/dL Estim Creat Clear Calc 94 ml/min Estimated GFR 60 (59 - ) Glucose 100 (65-110) mg/dL Calcium 9.0 (8.4-10.2) mg/dL Magnesium 2.3 (1.6-2.3) mg/dL Total Bilirubin 0.5 (0.2-1.3) mg/dL AST 31 (14-36) U/L ALT 47 H (6-35) U/L Alkaline Phosphatase 96 (38-126) U/L Troponin I < 0.012 < 0.012 (0.000-0.034) ng/mL Total Protein 7.0 (6.3-8.2) g/dL Albumin 4.2 (3.5-5.1) g/dL Lipase 97 (23-300) U/L TSH (Reflex) 0.630 (0.465-4.68) uIU/mL Imaging Data Attestation: I personally reviewed and interpreted this imaging study as follows: Radiologist's impression: ITS Impressions Chest X-Ray 08/10/24 12:12 IMPRESSION: 1. No acute cardiopulmonary disease. Head CT 08/10/24 13:08 IMPRESSION: 1. No acute cardiopulmonary disease. ECG Data EKG #1: Attestation: I personally reviewed and interpreted this ECG as follows: ECG completion date: 08/10/24 ECG completion time: 11:24 EKG Interpretation: tachycardia (106), sinus rhythm and no ST changes Discharge Plan Discharge Clinical Impression: Heart palpitations, Atypical chest pain Patient Disposition: Home, Self-Care Condition: Stable Instructions: Antibiotic Form, Chest Pain (ED), Heart Palpitations (ED), Chest Wall Pain (ED) Additional Instructions: Your work up here was reassuring. Go to cardiology office this week to have Holter/event monitor placed. Take order sheet with you. Call office to make follow up appointment for further evaluation. Stay well hydrated at home. Return to the ED if you experience worsening or severe symptoms, severe chest pain, worsening palpitations, shortness of breath, recurrent passing out, severe dizziness, or any other symptoms of concern. Prescriptions: No Action hydrochlorothiazide 12.5 mg tablet 12.5 mg PO DAILY ciprofloxacin HCl 500 mg tablet 500 mg PO Q12H Qty: 20 0RF Rx Instructions: Take all doses of medications dicyclomine 10 mg capsule 10 mg PO QID Qty: 120 3RF lisinopril 5 mg Tablet 5 mg PO BID testosterone cypionate 200 mg/mL oil 0.25 mg WEEKLY omeprazole 40 mg capsule,delayed release(DR/EC) 40 mg PO DAILY 30 Days Qty: 30 5RF famotidine [Pepcid] 40 mg tablet 40 mg PO QHS 30 Days Qty: 30 5RF Other Ambulatory Orders: [place] cardiac event monitor (Routine) Timeframe: 1 Week Location: Determined by Patient Ordered By: Promise Dimas Follow-up/Referrals: Jessee Sánchez MD [Physician] - (CARDIOLOGY) Viry,Ramona Aponte APRN [Primary Care Provider] - Stand Alone Forms: Work/School Release IP Time of Disposition: 14:55 Quality HEART score for chest pain patients History: moderately suspicious ECG: normal Age: < or = to 45 years Risk factors: 1 or 2 risk factors Troponin: < or = to 1x normal limit Heart score: 2
[2024-08-10 11:38] LABS: Basophils Absolute Auto 0.1 K/mm3 (0.0-0.1); Basophils Percent Auto 0.5 % (0.2-1.2); Eosinophils Absolute Auto 0.2 K/mm3 (0-0.3); Eosinophils Percent Auto 2.1 % (0-4.4); Hematocrit 46.5 % (37.0-47.0); Hemoglobin 15.2 g/dL (12.0-15.0); Immature Granulocyte Absolute 0.04 K/mm3 (0.00-0.031); Immature Granulocyte Percent A 0.4 % (0-0.5); Lymphocytes Absolute Auto 2.22 K/mm3 (0.9-3.2); Lymphocytes Percent Auto 19.7 % (18.3-44.2); Mean Corpuscular HGB Conc 32.7 g/dl (32-36); Mean Corpuscular Hemoglobin 28.5 pg (26-34); Mean Corpuscular Volume 87.2 fl (80-100); Monocytes Absolute Auto 0.8 K/mm3 (0.1-0.6); Monocytes Percent Auto 7.1 % (2.6-8.5); Neutrophils Absolute Auto 7.9 K/mm3 (1.3-6.7); Neutrophils Percent Auto 70.2 % (45.5-73.1); Platelet Count Result 307 k/mm3 (150-375); Red Blood Count 5.33 M/mm3 (4.2-5.4); Red Cell Distribution Width 14.6 % (11.5-14.5); White Blood Count 11.3 K/mm3 (4.5-10.0)
[2024-08-10 11:50] LABS: INR 0.9; Prothrombin Time 12.2 Seconds (11.1-14.7)
[2024-08-10 11:51] LABS: Partial Thromboplastin Time 35.6 Seconds (22.3-36.8)
[2024-08-10 11:54] LABS: D Dimer < 0.27 ug/mL (<0.48)
[2024-08-10 11:55] LABS: Alanine Aminotransferase 47 U/L (6-35); Albumin Level 4.2 g/dL (3.5-5.1); Alkaline Phosphatase 96 U/L (38-126); Anion Gap 5 mmol/L (4-12); Aspartate Amino Transferase 31 U/L (14-36); Bilirubin,Total 0.5 mg/dL (0.2-1.3); Blood Urea Nitrogen 13 mg/dL (7-17); Carbon Dioxide 27 mmol/L (22-30); Chloride 106 mmol/L (98-107); Estimated CRCL calculation 94 ml/min; Estimated Glomerular Filt Rate 60; Glucose 100 mg/dL (65-110); Lipase 97 U/L (23-300); Potassium 3.6 mmol/L (3.4-5.0); Sodium 138 mmol/L (137-145)
[2024-08-10 12:07] LABS: Troponin I < 0.012 ng/mL (0.000-0.034)
[2024-08-10 12:30] LABS: Magnesium 2.3 mg/dL (1.6-2.3)
[2024-08-10] MEDS: SODIUM CHLORIDE 0.9% IV 1,000 ML 999 ML IV CONT (13:27)
--- NOTE | 2024-08-10 14:36 | ECG_ITS ---
Test Date: 2024-08-10 14:40:45 Measurements Intervals [place] Rate: 82 P: 41 FL: 166 QRS: 18 QRSD: 109 T: 24 QT: 344 QTc: 403 Interpretive Statements SINUS RHYTHM NORMAL ECG Compared to ECG 08/10/2024 11:24:45 Sinus tachycardia no longer present Electronically Signed On 08-10-2024 15:05:51 CONFECTIONERY COOKER by Chad Del Rio M.D.
[2024-08-10 15:07] LABS: Troponin I < 0.012 ng/mL (0.000-0.034)
== END 2024-08-10 15:30 | disposition home or self-care (01) ==
PROVIDERS: Emergency Medicine; Emergency Provider Physician Assistant
DX: R07.89 Other chest pain (principal); R00.2 Palpitations; I10 Essential (primary) hypertension; K21.9 Gastro-esophageal reflux disease without esophagitis; K44.9 Diaphragmatic hernia without obstruction or gangrene; E66.01 Morbid (severe) obesity due to excess calories; Z68.42 Body mass index [BMI] 45.0-49.9, adult; F32.A Depression, unspecified; F64.0 Transsexualism; F17.290 Nicotine dependence, other tobacco product, uncomplicated; Z90.49 Acquired absence of other specified parts of digestive tract; Z79.899 Other long term (current) drug therapy; Z79.890 Hormone replacement therapy; R00.0 Tachycardia, unspecified
CPT/HCPCS: 36415; 70450; 71046; 80053; 83690; 83735; 84443; 84484; 85025; 85380; 85610; 85730; 93005; 96360; 99284; J7030

== ENCOUNTER 2024-11-26 11:08 | Emergency (ER) | payer OTHER, SELFPAY ==
--- NOTE | ~2024-11-26 | XR_ITS ---
XR hip LT min 2V 11/26/2024 12:36 INDICATION: Left hip pain after fall PROCEDURE: 2 views left COMPARISON: No prior studies for comparison. FINDINGS: Fracture, dislocation or subluxation is not identified. The soft tissues appear within norm al limits. No foreign bodies are identified. IMPRESSION: 1: NO ACUTE BONE OR JOINT ABNORMALITY IDENTIFIED. Reviewed, dictated and finalized at location B.
--- NOTE | ~2024-11-26 | XR_ITS ---
XR foot LT min 3V 11/26/2024 12:36 INDICATION: Left foot pain after fall PROCEDURE: 4 views left foot COMPARISON: No prior studies for comparison. FINDINGS: Fracture, dislocation or subluxation is not identified. Lisfranc joint intact. There is a s mall osteochondroma originating from the lateral aspect of the first metatarsal head. The soft tissue s appear within normal limits. No foreign bodies are identified. IMPRESSION: 1: NO ACUTE BONE OR JOINT ABNORMALITY IDENTIFIED. Reviewed, dictated and finalized at location B.
--- NOTE | ~2024-11-26 | XR_ITS ---
XR knee LT 3V 11/26/2024 12:36 INDICATION: Left knee pain PROCEDURE: 3 views left knee COMPARISON: No prior studies for comparison. FINDINGS: Fracture, dislocation or subluxation is not identified. No significant joint effusion. The soft tissues appear within normal limits. No foreign bodies are identified. IMPRESSION: 1: NO ACUTE BONE OR JOINT ABNORMALITY IDENTIFIED. Reviewed, dictated and finalized at location B.
--- NOTE | 2024-11-26 11:18 | ED_ITS ---
HPI - General Adult General Chief complaint: Extremity Injury, Lower Stated complaint: L KNEE/L ANKLE/L FOOT INJURY Time Seen by Provider: 11/26/24 11:18 Source: patient Mode of arrival: ambulatory Limitations: no limitations History of Present Illness HPI narrative: 24-year-old female patient who is transitioning into male,presents to the [facility] with complaints left hip, left knee and left ankle and foot pain x2 days. Patient states that their foot got caught in a blanket while they were cleaning 2 days ago and they fell onto the left side on to tile. Denies hitting head or loss of consciousness. Patient denies taking anything for pain since the fall. Patient states they have iced the area of the foot and knee intermittently. Denies wrapping the foot or the knee. Patient states they have been walking around intermittently but states does have a lot of pain when trying to walk. Related Data Home Medications ?Medication ?Instructions ?Recorded ?Confirmed ?Last Taken ?Type lisinopril 5 mg tablet 5 mg PO BID 12/31/23 11/26/24 12/31/23 History 0930 testosterone cypionate 200 mg/mL 0.25 mg WEEKLY 12/31/23 07/22/24 12/24/23 History intramuscular oil hydrochlorothiazide 12.5 mg tablet 12.5 mg PO DAILY 04/30/24 11/26/24 Unknown History albuterol sulfate 90 mcg/actuation inhalation 11/26/24 Unknown History aerosol inhaler lisinopril 10 mg tablet mg 11/26/24 Unknown History Allergies Allergy/AdvReac Type Severity Reaction Status Date / Time brompheniramine Allergy Anaphylaxis Verified 11/26/24 11:24 Penicillins Allergy Anaphylaxis Verified 11/26/24 11:24 phenylephrine Allergy Anaphylaxis Verified 11/26/24 11:24 sulfamethoxazole (From Allergy Anaphylaxis Verified 11/26/24 11:24 Bactrim) trimethoprim (From Bactrim) Allergy Anaphylaxis Verified 11/26/24 11:24 Review of Systems Review of Systems: CONSTITUTIONAL: Denies fever, chills, or sweats. EYES: Denies visual changes, redness, or discharge. ENT: Denies rhinorrhea, congestion, sore throat, or otalgia. CARDIOVASCULAR: Denies chest pain, palpitations, or edema. RESPIRATORY: Denies cough or dyspnea. GASTROINTESTINAL: Denies abdominal pain, nausea, vomiting, or diarrhea. GENITOURINARY: Denies dysuria or hematuria. SKIN: Denies rash or itching. MUSCULOSKELETAL: Denies back pain, joint pain, or myalgia. Positive left hip pain, left knee pain, left foot and ankle pain X2 days from fall NEUROLOGIC: Denies headache, numbness, or weakness. PSYCHIATRIC: Denies anxiety or depression. [facility] Past Medical History Medical History Tenesmus Rectal bleeding Hiatal hernia GERD (gastroesophageal reflux disease) Diarrhea Hypertension Depression Surgical History Surgical History History of cholecystectomy Social History Social History Smoking status: Current every day smoker Tobacco type: e-cigarettes/vaping Alcohol intake: never Substance use: never Substance use type: does not use Living arrangements: with roommate(s) Additional gender identity comments: Pronouns he/him/his Spiritual care concerns: No Comments At the time of my signature I agree with nursing past medical history, surgical, social, and family history. There is no relevant family history pertinent to the presenting complaint. Exam Narrative: GENERAL: Well-appearing, well-nourished, and in no acute distress. HEAD: Normocephalic, atraumatic. EYES: PERRLA and EOMI. ENT: Nares clear, no rhinorrhea or epistaxis. Mucous membranes moist. NECK: Supple. No lymphadenopathy CHEST: Clear to auscultation. No respiratory distress. HEART: Regular rate and rhythm. No murmur heard. Normal peripheral pulses. ABDOMEN: Soft, nontender, nondistended, normal active bowel sounds. EXTREMITIES: HIP: Patient is unable to ambulate to treatment area and arise to treatment area in wheelchair. patient states they have been unable to stand or walk much on to the left lower extremity No surface trauma, ecchymosis. no erythema, warmth. No deformity or crepitus or obvious asymmetry of the affected leg compared to the other. tenderness to palpation over ischial bone,iliac crest, no pain over thetrochanter, SI notch, buttocks, pain over thequadriceps, no pain over the femoral triangle, inguinal ligament. No inguinal lymphadenopathy. ROM limited and without pain. unable to flexion to chest, normal extension, patient is guarding and not wanting to perform [id number] exercises. Distal motor and neurovascular status are intact. KNEE: Patient is unable to bear weight and ambulate On left knee. No surface trauma, STS, or obvious effusion. No overlying erythema or warmth. The L knee is without obvious asymmetry or deformity when compared to the R knee. Patient is unable to do deep knee bend with symmetry, able to fully extend knee, no internal and external rotation. tendernss to palpation of the patella, no effusion or ballottement. tenderness over the infrapatellar tendon. No tenderness over the medial or lateral joint lone ot the medial or lateral tibial plateaus. no tenderness over the proximal fibular head. no tenderness, fullness, or mass of the popliteal fossa. quadriceps tenderness. No laxity of the ACL, PCL, MCL, or LCL. No collateral ligament laxity to valgus or vargus stress. Negative adama/drawer sign. Negative Sissy. Negative Apley compression and/or distraction. Distal motor and neurovascular status intact. FOOT: No surface trauma, ecchymosis, erythema, lesions, ulcers or break in skin integrity. The L foot is without obvious asymmetry or deformity when compared to the R foot. No bony step-off, tender to palpation over the 1st metatarsal and midfoot no tenderness over the hindfoot or sole. Normal plantar/dorsiflexion, inversion/eversion on passive range of motion but complains of pain. Distal motor and neurovascular status are intact SKIN: Warm, dry, no rash. NEURO: No focal deficits. Alert and oriented x3. Course Course Level of Care: Express Care Visit Reevaluation(s) Reevaluation #1: Re-evaluated patient notified him that his x-rays are negative for any acute fractures. Discussed with him this is most likely a sprain or strain. We will go ahead and wrap the left foot ankle with an Patric wrap him for crutches today. Discharge home with oral a ibuprofen for pain and swelling. And provided follow-up for Orthopedic surgery for further assessment of possible ligament or tendon injury. Date: 11/26/24 Time: 13:04 Vital Signs Vital signs: Vital Signs Temperature 36.3 C L 11/26/24 11:25 Pulse Rate 102 H 11/26/24 11:25 Respiratory Rate 16 11/26/24 11:25 Blood Pressure 151/88 H 11/26/24 11:25 Pulse Oximetry 100 11/26/24 11:25 Temperature 36.3 C L 11/26/24 11:25 Pulse Rate 102 H 11/26/24 11:25 Respiratory Rate 16 11/26/24 11:25 Blood Pressure 151/88 H 11/26/24 11:25 Pulse Oximetry 100 11/26/24 11:25 Vital signs reviewed. The patient has been informed that they may have pre-hypertension or Hypertension based on a BP reading in the department. I recommend that the patient call the primary care provider listed on their discharge instructions or a physician of their choice this week to arrange follow up for further evaluation of possible pre-hypertension or Hypertension Medical Decision Making MDM Narrative Medical decision making narrative: plan care patient is to x-ray the left hip, left at knee, left foot and ankle to evaluate for any acute fracture. Will reassess patient once this has resulted. 800 mg ibuprofen has been given to patient to help with pain Differential Diagnosis Differential Diagnosis: Differential diagnosis: Foot fracture, crush injury, compartment syndrome, contusion, sprain, tendinitis,lisfranc sprain or fracture, avulsion fracture, grown toenail, diabetic ulcer. Vital Signs Vital Signs: Vital Signs Temperature 36.3 C L 11/26/24 11:25 Pulse Rate 102 H 11/26/24 11:25 Respiratory Rate 16 11/26/24 11:25 Blood Pressure 151/88 H 11/26/24 11:25 Pulse Oximetry 100 11/26/24 11:25 Temperature 36.3 C L 11/26/24 11:25 Pulse Rate 102 H 11/26/24 11:25 Respiratory Rate 16 11/26/24 11:25 Blood Pressure 151/88 H 11/26/24 11:25 Pulse Oximetry 100 11/26/24 11:25 Vital signs reviewed. The patient has been informed that they may have pre-hypertension or Hypertension based on a BP reading in the department. I recommend that the patient call the primary care provider listed on their discharge instructions or a physician of their choice this week to arrange follow up for further evaluation of possible pre-hypertension or Hypertension Imaging Data Radiologist's impression: no obvious evidence of fracture noted and x-rays of the left hip, left knee or left foot. Critical Care Time Critical Care Time Critical Care Time: No Discharge Plan Discharge Clinical Impression: Fall on same level, Sprain of foot, left, Left knee sprain, Contusion of hip, left Patient Disposition: Home, Self-Care Condition: Stable Instructions: Antibiotic Form, Knee Sprain (ED), Hip Sprain (ED), Foot Sprain (ED) Additional Instructions: Avoid weight bearing until the pain subsides. Ice to the area 20-30 minutes 4-6 times a day Elevate above heart Elastic wrap or orthopedic splint as directed for comfort for the next 5-7 days Crutches as directed if needed Tylenol for lesser pain Ibuprofen regularly for the next 2-3 days for the inflammation Follow up with your primary care provider if the condition is not improving within 1 week or sooner if the Condition worsens with numbness, tingling, decrease sensation with weakness to seek ER. Patient Language: Albanian Prescriptions: New ibuprofen 800 mg tablet 800 mg PO Q6H PRN (Reason: pain) 7 Days Qty: 21 0RF No Action hydrochlorothiazide 12.5 mg tablet 12.5 mg PO DAILY lisinopril 10 mg tablet albuterol sulfate 90 mcg/actuation HFA aerosol inhaler INHALATION lisinopril 5 mg Tablet 5 mg PO BID testosterone cypionate 200 mg/mL oil 0.25 mg WEEKLY omeprazole 40 mg capsule,delayed release(DR/EC) 40 mg PO DAILY 30 Days Qty: 30 5RF famotidine [Pepcid] 40 mg tablet 40 mg PO QHS 30 Days Qty: 30 5RF Follow-up/Referrals: Homer Hirsch MD [Physician] - [facility],Ramona Aponte APRN [Primary Care Provider] - Time of Disposition: 13:00
[2024-11-26 11:25] VITALS: BP 151/88; PULSE 102; RESP 16; TEMP 36.3; O2SAT 100
[2024-11-26] MEDS: IBUPROFEN 400 MG TABLET 800 MG PO (12:14)
== END 2024-11-26 13:10 | disposition home or self-care (01) ==
PROVIDERS: Emergency Provider Nurse Practitioner Family
DX: S93.602A Unspecified sprain of left foot, initial encounter (principal); S83.92XA Sprain of unspecified site of left knee, initial encounter; S70.02XA Contusion of left hip, initial encounter; W18.09XA Striking against other object with subsequent fall, initial encounter; I10 Essential (primary) hypertension; K21.9 Gastro-esophageal reflux disease without esophagitis; F17.290 Nicotine dependence, other tobacco product, uncomplicated
CPT/HCPCS: 73502; 73562; 73630; 99214; A9270; G0463

== ENCOUNTER 2024-12-20 13:13 | Emergency (ER) | payer OTHER, SELFPAY ==
--- NOTE | 2024-12-20 13:21 | ED.EYEPROB ---
HPI - Eye Problem General Chief complaint: Upper Respiratory Infection Stated complaint: FEELS HOT/ELEVATED BLOOD PRESSURE/VISION PROBLEMS Time Seen by Provider: 12/20/24 13:16 Source: patient Mode of arrival: ambulatory Limitations: no limitations History of Present Illness HPI Narrative: Tian is a 24-year-old transgender male patient presenting to the clinic today with complaints of having high and cold chills, elevated blood pressure at home, diarrhea, feels as though uvula is swollen, and visual changes. He reports that they are seeing spots in her vision. Denies any headache or dizziness. Hot/cold chills has been going on for 3 days in all other symptoms started this morning. Feels generally unwell. Has had exposure to influenza last week. States diarrhea is yellow in color and is watery. Highest temperature was a 100? F. He received a new tattoo on the left forearm 1 week ago and is concerned about an infection in the tattoo. Denies any abdominal pain or urinary symptoms. No history of diabetes. Related Data Home Medications ?Medication ?Instructions ?Recorded ?Confirmed ?Last Taken ?Type lisinopril 5 mg tablet 5 mg PO BID 12/31/23 11/26/24 12/31/23 History 0930 testosterone cypionate 200 mg/mL 0.25 mg WEEKLY 12/31/23 07/22/24 12/24/23 History intramuscular oil hydrochlorothiazide 12.5 mg tablet 12.5 mg PO DAILY 04/30/24 11/26/24 Unknown History albuterol sulfate 90 mcg/actuation inhalation 11/26/24 Unknown History aerosol inhaler lisinopril 10 mg tablet mg 11/26/24 Unknown History aripiprazole 5 mg tablet mg 12/20/24 Unknown History buspirone 15 mg tablet mg 12/20/24 Unknown History meloxicam 15 mg tablet mg 12/20/24 Unknown History topiramate 50 mg tablet mg 12/20/24 Unknown History trazodone 50 mg tablet mg 12/20/24 Unknown History Allergies Allergy/AdvReac Type Severity Reaction Status Date / Time brompheniramine Allergy Anaphylaxis Verified 11/26/24 11:24 Penicillins Allergy Anaphylaxis Verified 11/26/24 11:24 phenylephrine Allergy Anaphylaxis Verified 11/26/24 11:24 sulfamethoxazole (From Allergy Anaphylaxis Verified 11/26/24 11:24 Bactrim) trimethoprim (From Bactrim) Allergy Anaphylaxis Verified 11/26/24 11:24 Review of Systems Review of Systems: Pertinent positives per HPI. Patient denies any fever, chills, rash, headache, dizziness, cough, shortness of breath, chest pain, palpitations, nausea, vomiting, constipation, abdominal pain, or any urinary issues. [facility] Past Medical History Medical History Tenesmus Rectal bleeding Hiatal hernia GERD (gastroesophageal reflux disease) Diarrhea Hypertension Depression Surgical History Surgical History History of cholecystectomy Social History Social History Smoking status: Current every day smoker Tobacco type: e-cigarettes/vaping Alcohol intake: never Substance use: never Substance use type: does not use Living arrangements: with roommate(s) Additional gender identity comments: Pronouns he/him/his Spiritual care concerns: No Comments At the time of my signature, I reviewed and agree with the nursing past medical, surgical, social, and family history. There is no relevant family history pertinent to the patient complaint. Exam Narrative: General: Well-developed, obese, in no apparent distress Head: Normocephalic, atraumatic Eyes: Pupils equally round and reactive to light bilaterally, EOM intact, sclera and conjunctive clear, no discharge, lids normal, wears glasses Ears: TMs intact and clear, ear canals clear, no drainage, grossly hearing normal. Nose: Nares patent, clear discharge, no inflammation, no sinus tenderness. Mouth: Oral pharynx red without lesions or masses, good dentition, MMM. Even rise and fall of the uvula-no swelling visible or obvious angioedema Neck: Supple, trachea midline, no enlargement of anterior or posterior cervical nodes, no thyroid masses or goiter palpable. Cardio: Regular rate and rhythm, s1 and s2 normal, no murmur appreciated. Resp: Clear to auscultation bilaterally, no rhonchi, rales, wheezing or rubs Abdomen: Soft, pliable, bowel sounds present in all quadrants, non-tender to palpation, no organomegly, no CVAT tenderness. Integumentary: [place], warm, and dry, new tattoo to to the left forearm with mild redness without erythema or purulent discharge. Course Course Emergency Course: Portions of this record may have been created with voice recognition software. Level of Care: Express Care Visit Vital Signs Vital signs: Vital Signs Temperature 36.1 C L 12/20/24 13:22 Pulse Rate 92 12/20/24 13:22 Respiratory Rate 16 12/20/24 13:22 Blood Pressure 124/79 12/20/24 13:22 Pulse Oximetry 100 12/20/24 13:22 Oxygen Delivery Room Air 12/20/24 13:22 Temperature 36.1 C L 12/20/24 13:22 Pulse Rate 92 12/20/24 13:22 Respiratory Rate 16 12/20/24 13:22 Blood Pressure 124/79 12/20/24 13:22 Pulse Oximetry 100 12/20/24 13:22 Oxygen Delivery Room Air 12/20/24 13:22 Vital signs reviewed MDM - Eye Problem MDM Narrative Medical decision making narrative: At the time of visit patient is resting comfortably on the exam table. Patient appears to be nontoxic. Labs: Bedside glucose was 105, strep, COVID, and influenza testing were all negative. We will send strep for culture. Plan: Shared decision making was provided. Offered to send patient to the emergency room for further evaluation to rule out other causes of symptoms versus sending him home and following up with PCP sona. He denies wanting to go the emergency room at this time would like to go home and rest. States if his symptoms worsen he will go to the emergency room. Supportive measures were discussed with the patient and they voiced understanding discharge instructions and agrees to treatment plan. Return precautions reviewed Differential Diagnosis Differential diagnosis: Likely other (Diabetes, migraine, viral syndrome, gastroenteritis, adverse med reaction, serotonin syndrome) Lab Data Labs: Lab Results 12/20/24 Range/Units 13:39 POC Influenza A Ag Negative (Negative) POC Influenza B Ag Negative (Negative) POC SARS CoV-2 Ag Negative (Negative) POC Grp A Strep Screen Negative (Negative) Discharge Plan Discharge Clinical Impression: Viral infection, Changes in vision Diarrhea Qualifiers: Diarrhea type: due to malabsorption Qualified Code(s): K90.9 - Intestinal malabsorption, unspecified Patient Disposition: Home Condition: Stable Instructions: Antibiotic Form Additional Instructions: Random glucose was 105 in the clinic today-this is normal Strep, COVID, and influenza testing were all negative. We will send strep for culture. If culture comes back positive we will contact him place you on antibiotics at that time Conchita does not appear to be infected at this time Blood pressure is 124/79 in the clinic today-this is a normal reading May take Imodium as needed for diarrhea Increase fluids and stay well hydrated Tylenol/motrin for pain/fever BRAT diet for diarrhea Clear liquids x 24 hours then advance as tolerated for nausea/vomiting Go to the ED if you develop a worsening in your condition- high fever not controlled by Tylenol or Motrin, dehydration, worsening visual changes, weakness, lethargy, shortness of breath, or chest pain. Follow up with your PCP in 3-5 days if symptoms persist. Patient Language: Vincentian Prescriptions: No Action hydrochlorothiazide 12.5 mg tablet 12.5 mg PO DAILY lisinopril 10 mg tablet albuterol sulfate 90 mcg/actuation HFA aerosol inhaler INHALATION ibuprofen 800 mg tablet 800 mg PO Q6H PRN (Reason: pain) 7 Days Qty: 21 0RF trazodone 50 mg tablet meloxicam 15 mg tablet buspirone 15 mg tablet aripiprazole 5 mg tablet topiramate 50 mg tablet lisinopril 5 mg Tablet 5 mg PO BID testosterone cypionate 200 mg/mL oil 0.25 mg WEEKLY omeprazole 40 mg capsule,delayed release(DR/EC) 40 mg PO DAILY 30 Days Qty: 30 5RF famotidine [Pepcid] 40 mg tablet 40 mg PO QHS 30 Days Qty: 30 5RF Follow-up/Referrals: Viry,Ramona Aponte, COMBINATION MACHINE TOOL OPERATOR [Primary Care Provider] - Time of Disposition: 14:24 Quality NIHSS Nursing Documentation ED NIHSS nursing documentation: reviewed/agree
[2024-12-20 13:22] VITALS: BP 124/79; PULSE 92; RESP 16; TEMP 36.1; O2SAT 100
[2024-12-20 14:05] LABS: EDCOVIDSCREEN Negative (Negative); EDINFLUASCREEN Negative (Negative); EDINFLUBSCREEN Negative (Negative)
[2024-12-20 14:08] LABS: EDSTREPNEGPOS1 Negative (Negative)
[2024-12-20 14:21] LABS: Glucose Point of Care 105 mg/dl (65-105)
== END 2024-12-20 14:26 | disposition home or self-care (01) ==
PROVIDERS: Emergency Provider Nurse Practitioner Family
DX: B34.9 Viral infection, unspecified (principal); H53.9 Unspecified visual disturbance; K90.9 Intestinal malabsorption, unspecified; Z20.822 Contact with and (suspected) exposure to COVID-19; F17.290 Nicotine dependence, other tobacco product, uncomplicated; I10 Essential (primary) hypertension; K21.9 Gastro-esophageal reflux disease without esophagitis
CPT/HCPCS: 82948; 87081; 87426; 87804; 87880; 99213; G0463

== ENCOUNTER 2025-04-19 06:02 | Emergency (ER) | payer OTHER, SELFPAY ==
--- NOTE | ~2025-04-19 | US_ITS ---
EXAMINATION: US pelvic complete INDICATION: Lower abdominal pain. Free fluid in abdomen Comparison:CT abdomen and pelvis 04/19/2025 TECHNIQUE: Multiple transabdominal sonographic images of the pelvis performed. FINDINGS: The uterus measures 8.6 x 4.4 x 6.0 cm. The endometrial complex measures 6 mm. The right ovary measures 2.3 x 3.6 x 3.2 and the left ovary measures 3.7 x 2.4 x 2.6. There are smal l follicles in each ovary. Normal doppler signal in both ovaries. The left ovary slightly heterogeneous. Small amount of fluid about the left ovary. Small amount of fl uid in the cul-de-sac. IMPRESSION: 1. Left ovary is slightly heterogeneous. The finding is nonspecific. 2. Small amount of fluid about the left ovary and in the cul-de-sac. If symptoms persist or worsen, consider a short-term follow-up study or additional imaging for furthe r assessment. Reviewed, dictated and finalized at location A. IMPRESSION: 1. Left ovary is slightly heterogeneous. The finding is nonspecific. 2. Small amount of fluid about the left ovary and in the cul-de-sac. If symptoms persist or worsen, consider a short-term follow-up study or additio nal imaging for further assessment.
--- NOTE | ~2025-04-19 | CT_ITS ---
EXAMINATION: CT abdomen pelvis w con DATE: 04/19/2025 07:26 INDICATION: Right lower quadrant pain. Nausea and vomiting. TECHNIQUE: Computed tomography (CT) of the abdomen and pelvis was performed with 100 cc Omnipaque 350 intravenous contrast. The dose-length product was 1547.32 mGy-cm. Automated exposure control and ite rative reconstruction technique were employed. COMPARISON: 05/01/2024 FINDINGS: Lung bases are unremarkable. Heart size normal. Status post cholecystectomy. The spleen, pa ncreas, adrenal glands and kidneys are unremarkable. There is an accessory splenule. There is free fl uid in the right perihepatic space and paracolic gutter. Status post cholecystectomy. Colonic diverti culosis without evidence for diverticulitis. Appendix is not thickened. No significant vascular abnor mality. No free air. Small fat-containing umbilical hernia. Nonenlarged inguinal lymph nodes. IMPRESSION: 1. Nonspecific free fluid in the right abdomen. No significant thickening of the appendix. Reviewed, dictated and finalized at location A. IMPRESSION: 1. Nonspecific free fluid in the right abdomen. No significant thickening of th e appendix.
--- OUTSIDE RECORDS SUMMARY | 2025-04-19 06:05 | XMS_ITS | Clinical Summary ---
Author Organization [facility] Address [address] [place] [address] Care Team Providers Care Engine Cowling Installer Name Role Phone Mary Rosenthal Delfino QUINTERO-SURGICAL SERVICES ASSISTANT Primary Care Provider Source Comments [facility],non-owned Affiliates and Associated Physician Practices is amultiple site organization consisting of ambulatory clinics and hospital sitesin [place], [place], [place] and [place]. This disclosure is being madepursuant to the Care Everywhere program and may not contain all information available regarding this patient. 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 Gender Identity Not on file Sexual Orientation Not on file Plan of Treatment Health Maintenance Due Date Last Done Comments HIV SCREENING 2013 HPV VACCINE (1 - 3-dose series) 2013 HEPATITIS C SCREENING 06/26/2016 DTAP/TDAP/TD VACCINES (1 - Tdap) 2017 HEPATITIS B VACCINE (1 of 3 - 19+ 3-dose series) 2017 COVID-19 VACCINE (3 - 2023-2 5 season) 2024 02/28/2021, 01/30/2021 DEPRESSION SCREENING 09/07/2024 INFLUENZA VACCINE (#1) 2025 ZOSTER VACCINE (1 of 2) 2048 HIB VACCINE Aged Out No longer eligi ble based on patient's age to complete this topic MENINGOCOCCAL (Group B) VACCINE SHARED DECISION-MAKING Aged Out No longer eligible based on patient's age to complete this topic MENINGOCOCCAL GROUPS A/C/Y/W VACCINE Aged Out No longer eligible b ased on patient's age to complete this topic PNEUMOCOCCAL VACCINE Aged Out No long er eligible based on patient's age to complete this topic Insurance Care Teams Engine Cowling Installer Relationship Specialty Start Date End Date Mary Rosenthal, SUPERVISOR [employer]-SURGICAL SERVICES ASSISTANT [address] [place] [address] PCP - General 10/20/22
--- OUTSIDE RECORDS SUMMARY | 2025-04-19 06:05 | XMS_ITS | Clinical Summary ---
Author Organization [facility] Address [address] [place] [address] Phone Care Team Providers Care Director Talent Acquisition Name Role Phone Felipe Fuller APRN, FISH AND WILDLIFE BIOLOGIST Unavailable [phone] Mary Rosenthal SOLAR SALES, FISH AND WILDLIFE BIOLOGIST Primary Care Pro vider Allergies Active Allergy Reactions Criticality Noted Date Comments Sulfamethoxazole-Trimet hoprim Other (see Comments) 08/22/2022 Made heart stop Dimetapp Children's Cold-Cough Other (see Comments) 08/22/2022 Made heart stop Penicillins Other (see Comments) 08/22/2022 Made heart stop Medications ARIPiprazole (ABILIFY) 5 MG Tablet TAKE 1 TABLET BY MOUTH EVERY DAY AT BEDTIME 2 Active montelukast (SINGULAIR) 10 MG Tablet 2 Active traZODone (DESYREL) 50 MG Tablet TAKE 1 TABLET BY MOUTH AT BEDTIME NEEDED 2 Active pantoprazole (PROTONIX) 40 MG Tablet Delayed Response Take 40 mg by mouth every morning. 2 Active albuterol 108 (90 Base) MCG/ACT Aerosol Solution INHALE 2 PUFFS BY MOUTH EVERY 4 HOURS 2 Active fluticasone (FLONASE) 50 MCG/ACT Suspension SHAKE LIQUID AND USE 2 SPRAYS IN EACH NOSTRIL EVERY DAY DIRECTED 2 Active busPIRone (BUSPAR) 10 MG Tablet TAKE 1 TABLET BY MOUTH TWICE DAILY DIRECTED 3 Active ferrous sulfate 325 (65 Fe) MG Tablet Take 1 Tablet by mouth three times a week. 90 Tablet 3 Active Levonorgest-Eth Estrad 91-Day (Simpesse) 0.15-0.03 &0.01 MG TabletIndicatio ns:Heavy Menstrual Bleeding Take by mouth. Indications: Excessive Amount of Menstrual Volume Active Cyanocobalamin (B-12) 1000 MCG Capsule Take 2 Capsules by mouth daily. 3 Active Active Problems Problem Noted Date Diagnosed Date Morbid obesity with BMI of 45.0-49.9, adult 02/2023 Iron deficiency 09/09/2022 Gastroesophageal reflux disease without esophagi tis 08/22/2022 Menorrhagia with regular cycle 08/22/2022 Anxiety 08/22/2022 Mild intermittent asthma without complication Leukocytosis B12 deficiency Chronic fatigue Family History Medical History Relation Name Comments Hypertension Father Diabetes Maternal Grandmother Colon Cancer Mother Relation Name Status Comments Father Alive Maternal Grandmother Mother Alive Social History Tobacco Use Types Packs/Day Years Used Date Smoking Tobacco: Never Smokeless Tobacco: Never Tobacco Cessation:Counseling Given: No Alcohol Use Standard Drinks/Week Comments Never 0 (1 standard drink = 0.6 oz pur e alcohol) Sexually Active Control Partners Comments Not Currently Comments No Sex and Gender Information Value Date Recorded Sex Assigned at Not on file Legal Sex Female 11:23 AM ANY COMMODITY BUYER Gender Identity Not on file Sexual Orientation Not on file Last Filed Vital Signs Vital Sign Reading Time Taken Comments Blood Pressure 130/84 07/11/2024 11:16 AM ANY COMMODITY BUYER Pulse 97 07/11/2024 11:16 AM ANY COMMODITY BUYER Temperature 36.6 C (97.8 F) 03/21/2024 10:39 PM CDT Respiratory Rate 19 07/11/2024 11:1 6 AM ANY COMMODITY BUYER Oxygen Saturation 97% 07/11/2024 11: 16 AM ANY COMMODITY BUYER Inhaled Oxygen Concentration - - Weight 137.3 kg (302 lb 12.8 oz) 2023 11:16 AM ANY COMMODITY BUYER Height 165.1 cm (5' 5) 07/11/2024 11:1 6 AM ANY COMMODITY BUYER Body Mass Index 50.39 07/11/2024 11:16 AM ANY COMMODITY BUYER Plan of Treatment Health Maintenance Due Date Last Done Comments Hepatitis C Virus (HCV) Screening 1998 TdaP Immunization 1998 Human Papillomavirus (HPV) Immunization (1 - 3-dose series) 2013 Hepatitis B Immunization (1 of 3 - 19+ 3-dose series) 2017 Pneumococcal Immunization Combined (1 of 2 - PCV) 2017 Pap Smear 2019 SARS-COV-2 Immunization (3 - season) 2024 02/28/2021, 01/30/2021 Influenza Immunization (#1) 2025 Respiratory Syncytial Virus (RSV) Immunization (Adult) (1 - 1-dose 75+ series) 2073 Meningococcal Immunization (ACWY) Aged Out No longer eligible b ased on patient's age to complete this topic Rotavirus Immunization Aged Out No lo nger eligible based on patient's age to complete this topic Insurance MEDICAID [employer] Care Teams Director Talent Acquisition Relationship Specialty Start Date End Date Mary Rosenthal APRN, FISH AND WILDLIFE BIOLOGIST [address] [place] [address] PCP - General Primary Care 07/06/24 Felipe Fuller APRN, FISH AND WILDLIFE BIOLOGIST [address] [place] [address] Nurse Practitioner Advanced Practice Nurse 06/13/24
[2025-04-19 06:18] VITALS: BP 134/92; PULSE 89; RESP 15; TEMP 36.8; O2SAT 99
[2025-04-19 06:25] LABS: BEDSIDEPREGUCG Negative (Negative)
[2025-04-19 06:27] LABS: Hematocrit 45.0 % (37.0-47.0); Hemoglobin 14.6 g/dL (12.0-15.0); Immature Granulocyte Percent A 0.5 % (0-0.5); Lymphocytes Absolute Auto 2.95 K/mm3 (0.9-3.2); Mean Corpuscular HGB Conc 32.4 g/dl (32-36); Mean Corpuscular Hemoglobin 27.7 pg (26-34); Mean Corpuscular Volume 85.2 fl (80-100); Nucleated Red Blood Cells Absolute Auto 0.000 K/mm3 (0.0-0.012); Nucleated Red Blood Cells Perc 0.0 % (0.0-0.2); Platelet Count Result 363 k/mm3 (150-375); Red Blood Count 5.28 M/mm3 (4.2-5.4); White Blood Count 13.9 K/mm3 (4.5-10.0)
[2025-04-19] MEDS: MORPHINE SULFATE (*CRX) 4 MG/ML INJ IV PUSH (06:31)
[2025-04-19] MEDS: SODIUM CHLORIDE 0.9% IV 1,000 ML 999 ML IV CONT (06:31)
[2025-04-19] MEDS: ONDANSETRON INJ 4 MG/2 ML VIAL IV PUSH (06:31)
[2025-04-19 06:55] LABS: Add Urine Microscopic? YES; Appearance Urine Clear (Clear); Glucose Urine UA Negative (Negative); Leukocyte Esterase Ur Trace LEU/UL (Negative); Need Manual Microscopic Reviewed; Nitrate Urine Negative (Negative); Non Pathogenic Casts 0-2; Specific Grav Ur 1.019 (1.001-1.035)
[2025-04-19 07:03] LABS: Alanine Aminotransferase 27 U/L (6-35); Albumin Level 4.1 g/dL (3.5-5.1); Alkaline Phosphatase 122 U/L (38-126); Anion Gap 10 mmol/L (4-12); Aspartate Amino Transferase 37 U/L (14-36); Bilirubin,Total 0.7 mg/dL (0.2-1.3); Blood Urea Nitrogen 17 mg/dL (7-17); Calcium 9.0 mg/dL (8.4-10.2); Carbon Dioxide 23 mmol/L (22-30); Chloride 102 mmol/L (98-107); Estimated Glomerular Filt Rate > 60; Glucose 96 mg/dL (65-110); Lipase 68 U/L (23-300); Potassium 4.1 mmol/L (3.4-5.0); Sodium 135 mmol/L (137-145); Total Protein 7.4 g/dL (6.3-8.2)
[2025-04-19 07:17] VITALS: BP 134/81; PULSE 75; RESP 12; O2SAT 96
--- OUTSIDE RECORDS SUMMARY | 2025-04-19 07:31 | XMS_ITS | Clinical Summary ---
Author Organization [facility] Address [address] [place] [address] Care Team Providers Care Methods Analyst Data Processing Name Role Phone Mary Rosenthal Delfino QUINTERO-LADLER Primary Care Provider Source Comments [facility],non-owned Affiliates and Associated Physician Practices is amultiple site organization consisting of ambulatory clinics and hospital sitesin [place], [place] and [place]. This disclosure is being madepursuant to the Care Everywhere program and may not contain all information available regarding this patient. Last updated 18.[facility] Immunizations Immunization Administration Dates Next Due Covid Moderna primary monovalent 12+ yr 0.5mL ,01/30/2021 Social History Tobacco Use Types Packs/Day Years Used Date Smoking Tobacco: Never Assessed Comments Unknown Sex and Gender Information Value Date Recorded Sex Assigned at Not on file Legal Sex Female 10:51 AM SETTER MACHINE Gender Identity Not on file Sexual Orientation [...] to complete this topic Insurance Care Teams Methods Analyst Data Processing Relationship Specialty Start Date End Date Mary Rosenthal, PACKAGING LINE ATTENDANT-LADLER [address] [place] [address] PCP - General 10/20/22
--- OUTSIDE RECORDS SUMMARY | 2025-04-19 07:31 | XMS_ITS | Clinical Summary ---
Author Organization [facility] Address [address] [place] [address] Phone Care Team Providers Care Compress Machine Operator Name Role Phone Felipe Fuller APRN, HEAD STOCK TRANSFER CLERK Unavailable [phone] Mary Rosenthal GAS PUMPING STATION HELPER, HEAD STOCK TRANSFER CLERK Primary Care Pro vider Allergies Active Allergy [...] on file Legal Sex Female 11:23 AM NEEDLE POLISHER Gender Identity Not on file Sexual Orientation Not on file Last Filed Vital Signs Vital Sign Reading Time Taken Comments Blood Pressure 130/84 07/11/2024 11:16 AM NEEDLE POLISHER Pulse 97 07/11/2024 11:16 AM NEEDLE POLISHER Temperature 36.6 C (97.8 F) 03/21/2024 10:39 PM CDT Respiratory Rate 19 07/11/2024 11:1 6 AM NEEDLE POLISHER Oxygen Saturation 97% 07/11/2024 11: 16 AM NEEDLE POLISHER Inhaled Oxygen Concentration - - Weight 137.3 kg (302 lb 12.8 oz) 2023 11:16 AM NEEDLE POLISHER Height 165.1 cm (5' 5) 07/11/2024 11:1 6 AM NEEDLE POLISHER Body Mass Index 50.39 07/11/2024 11:16 AM NEEDLE POLISHER Plan of Treatment Health Maintenance Due Date [...] Insurance MEDICAID [employer] Care Teams Compress Machine Operator Relationship Specialty Start Date End Date Mary Rosenthal APRN, HEAD STOCK TRANSFER CLERK [address] [place] [address] PCP - General Primary Care 07/06/24 Felipe Fuller APRN, HEAD STOCK TRANSFER CLERK [address] [place] [address] Nurse Practitioner Advanced Practice Nurse 06/13/24
--- NOTE | 2025-04-19 08:36 | ED_ITS ---
HPI - General Adult General Chief complaint: Abdominal Pain Stated complaint: lower right abdomen pain Time Seen by Provider: 04/19/25 07:10 History of Present Illness HPI narrative: This is a 24-year-old female who identifies as male presenting for right lower quadrant pain. Patient says that when she woke up this morning she had a dull squeezing pain in her right lower abdomen. Radiated to her abdomen is worse when she tried to have a bowel movement. It was moderate intensity. The pain is since resolved she is now pain-free. She says it felt like when she had an ovarian cyst in past. She has had some some nausea and felt hot but not have fevers chills chest pain breathing abdominal pain or urinary symptoms. Patient used to be on testosterone replacement but had discontinued it due to hypoglycemic episodes at night. Related Data Home Medications ?Medication ?Instructions ?Recorded ?Confirmed ?Last Taken ?Type lisinopril 5 mg tablet 5 mg PO BID 12/31/23 11/26/24 12/31/23 History 0930 testosterone cypionate 200 mg/mL 0.25 mg WEEKLY 12/31/23 07/22/24 12/24/23 History intramuscular oil hydrochlorothiazide 12.5 mg tablet 12.5 mg PO DAILY 04/30/24 11/26/24 Unknown History albuterol sulfate 90 mcg/actuation inhalation 11/26/24 Unknown History aerosol inhaler lisinopril 10 mg tablet mg 11/26/24 Unknown History aripiprazole 5 mg tablet mg 12/20/24 Unknown History buspirone 15 mg tablet mg 12/20/24 Unknown History meloxicam 15 mg tablet mg 12/20/24 Unknown History topiramate 50 mg tablet mg 12/20/24 Unknown History trazodone 50 mg tablet mg 12/20/24 Unknown History Allergies Allergy/AdvReac Type Severity Reaction Status Date / Time brompheniramine Allergy Anaphylaxis Verified 04/19/25 06:31 Penicillins Allergy Anaphylaxis Verified 04/19/25 06:31 phenylephrine Allergy Anaphylaxis Verified 04/19/25 06:31 sulfamethoxazole (From Allergy Anaphylaxis Verified 04/19/25 06:31 Bactrim) trimethoprim (From Bactrim) Allergy Anaphylaxis Verified 04/19/25 06:31 [facility] Past Medical History Medical History [facility] Rectal bleeding Hiatal hernia GERD (gastroesophageal reflux disease) Diarrhea Hypertension Depression Surgical History Surgical History History of cholecystectomy Social History Social History Smoking status: Current every day smoker Tobacco type: e-cigarettes/vaping Alcohol intake: never Substance use: never Substance use type: does not use Living arrangements: with roommate(s) Additional gender identity comments: Pronouns he/him/his Spiritual care concerns: No Exam 2 Narrative: APPEARANCE: No apparent distress. Head: atraumatic. EYES: EOMI, NOSE: Atraumatic NECK: Trachea midline RESPIRATORY: No increased rate of breathing CTAB CARDIOVASCULAR: RRR, no peripheral edema ABDOMINAL: Obese, nontender no guarding or rebound MUSCULOSKELETAl: No obvious deformities NEURO: Alert. Moving 4/4 extremities SKIN:: Warm, dry. Normal color PSYCHIATRIC: Normal affect Course Vital Signs Vital signs: Vital Signs Temperature 98.2 F 04/19/25 06:18 Pulse Rate 89 04/19/25 06:18 Respiratory Rate 15 04/19/25 06:18 Blood Pressure 134/92 H 04/19/25 06:18 Pulse Oximetry 99 04/19/25 06:18 Oxygen Delivery Room Air 04/19/25 06:18 Temperature 98.2 F 04/19/25 06:18 Pulse Rate 71 04/19/25 10:03 Respiratory Rate 12 04/19/25 10:03 Blood Pressure 112/63 04/19/25 10:03 Pulse Oximetry 98 04/19/25 10:03 Oxygen Delivery Room Air 04/19/25 06:18 Medical Decision Making [facility] Narrative Medical decision making narrative: -Course: 24-year-old female who identifies as male presenting with lower quadrant pain. Patient has stable vital signs. Their abdominal exam is benign. CT abdomen pelvis showed nonspecific free fluid in the right side of the abdomen. Pelvic ultrasound showed heterogenous left ovary which is nonspecific. Normal blood flow to both ovaries. Patient received pain medication and fluids. She is now resting more comfortably. Patient received serial abdominal examinations throughout her stay. I believe the free fluid is likely due to a ruptured ovarian cyst. I discussed the results with the patient at length. I discussed return precautions including increased pain or lightheadedness/syncope. The patient is comfortable being discharged with return precautions and primary care follow-up. -DDX includes but is not limited to: Appendicitis, ovarian cyst, colitis, gastroenteritis, diverticulitis -Co-morbidities complicating care: transgender w/ hx of hormone replacement. Vital Signs Vital Signs: Vital Signs Temperature 98.2 F 04/19/25 06:18 Pulse Rate 89 04/19/25 06:18 Respiratory Rate 15 04/19/25 06:18 Blood Pressure 134/92 H 04/19/25 06:18 Pulse Oximetry 99 04/19/25 06:18 Oxygen Delivery Room Air 04/19/25 06:18 Temperature 98.2 F 04/19/25 06:18 Pulse Rate 71 04/19/25 10:03 Respiratory Rate 12 04/19/25 10:03 Blood Pressure 112/63 04/19/25 10:03 Pulse Oximetry 98 04/19/25 10:03 Oxygen Delivery Room Air 04/19/25 06:18 Lab Data 04/19/25 06:20 04/19/25 06:20 Labs: Lab Results 04/19/25 04/19/25 Range/Units 06:20 06:22 WBC 13.9 H (4.5-10.0) K/mm3 RBC 5.28 (4.2-5.4) M/mm3 Hgb 14.6 (12.0-15.0) g/dL Hct 45.0 (37.0-47.0) % MCV 85.2 (80-100) fl MCH 27.7 (26-34) pg MCHC 32.4 (32-36) g/dl RDW 13.8 (11.5-14.5) % Plt Count 363 (150-375) k/mm3 MPV 10.5 H (7.4-10.4) fl Immature Gran % (Auto) 0.5 (0-0.5) % Neut % (Auto) 70.6 (45.5-73.1) % Lymph % (Auto) 21.3 (18.3-44.2) % [place] % (Auto) 5.6 (2.6-8.5) % Eos % (Auto) 1.4 (0-4.4) % Baso % (Auto) 0.6 (0.2-1.2) % Lymph # (Auto) 2.95 (0.9-3.2) K/mm3 [place] # (Auto) 0.8 H (0.1-0.6) K/mm3 Eos # (Auto) 0.2 (0-0.3) K/mm3 Baso # (Auto) 0.1 (0.0-0.1) K/mm3 Abs Immat Gran (auto) 0.07 H (0.00-0.031) K/mm3 Absolute Neuts (auto) 9.8 H (1.3-6.7) K/mm3 Absolute Nucleated RBC 0.000 (0.0-0.012) K/mm3 Nucleated RBC % 0.0 (0.0-0.2) % Sodium 135 L (137-145) mmol/L Potassium 4.1 (3.4-5.0) mmol/L Chloride 102 (98-107) mmol/L Carbon Dioxide 23 (22-30) mmol/L Anion Gap 10 (4-12) mmol/L BUN 17 (7-17) mg/dL Creatinine 0.98 (0.7-1.0) mg/dL Estim Creat Clear Calc Not Reportable Estimated GFR > 60 (59 - ) Glucose 96 (65-110) mg/dL Calcium 9.0 (8.4-10.2) mg/dL Total Bilirubin 0.7 (0.2-1.3) mg/dL AST 37 H (14-36) U/L ALT 27 (6-35) U/L Alkaline Phosphatase 122 (38-126) U/L Total Protein 7.4 (6.3-8.2) g/dL Albumin 4.1 (3.5-5.1) g/dL Lipase 68 (23-300) U/L Urine Color Yellow (Yellow) Urine Appearance Clear (Clear) Urine pH 6.5 (5.0-9.0) Ur Specific Hustler 1.019 (1.001-1.035) Urine Protein Negative (Negative) mg/dL Urine Glucose (UA) Negative (Negative) mg/dL Urine Ketones Negative (Negative) mg/dL Ur Blood (Man) Negative (Negative) Urine Nitrate Negative (Negative) Urine Bilirubin Negative (Negative) Urine Urobilinogen 0.2 (<2.0) mg/dL Add Ur Microanalysis Reviewed Leukocyte Esterase Rfl Trace H (Negative) FERMIN/UL Urine RBC 6-10 H (0-2) /hpf Urine WBC 0-5 (0-3) /hpf Ur Squamous Epith Cells Few (Few) /hpf Urine Bacteria None seen /hpf Urine Casts 0-2 POC Urine HCG, Qual Negative (Negative) Discharge Plan Discharge Clinical Impression: Abdominal pain Patient Disposition: Home Condition: Stable Instructions: Antibiotic Form, Abdominal Pain (ED) Additional Instructions: You were seen in the emergency department for abdominal pain. Please use Motrin and Tylenol as needed for pain. Please follow-up with your primary care physician in 3-5 days. If you develop severe abdominal pain fevers or bloody diarrhea please return to the ED for re-evaluation. Patient Language: Senegalese Prescriptions: New ibuprofen 800 mg tablet 800 mg PO TID PRN (Reason: pain) 7 Days Qty: 21 0RF acetaminophen 500 mg tablet 1,000 mg PO TID PRN (Reason: april) 7 Days Qty: 42 0RF ondansetron 4 mg tablet,disintegrating 4 mg PO Q8H PRN (Reason: nausea and vomiting) Qty: 30 0RF No Action hydrochlorothiazide 12.5 mg tablet 12.5 mg PO DAILY lisinopril 10 mg tablet albuterol sulfate 90 mcg/actuation HFA aerosol inhaler INHALATION ibuprofen 800 mg tablet 800 mg PO Q6H PRN (Reason: pain) 7 Days Qty: 21 0RF trazodone 50 mg tablet meloxicam 15 mg tablet buspirone 15 mg tablet aripiprazole 5 mg tablet topiramate 50 mg tablet lisinopril 5 mg Tablet 5 mg PO BID testosterone cypionate 200 mg/mL oil 0.25 mg WEEKLY omeprazole 40 mg capsule,delayed release(DR/EC) 40 mg PO DAILY 30 Days Qty: 30 5RF famotidine [Pepcid] 40 mg tablet 40 mg PO QHS 30 Days Qty: 30 5RF Follow-up/Referrals: Viry,Ramona Aponte, SEARCH CONSULTANT [Primary Care Provider] -
[2025-04-19 10:03] VITALS: BP 112/63; PULSE 71; RESP 12; O2SAT 98
[2025-04-19] MEDS: KETOROLAC 15 MG/ML VIAL (*BKC) IV PUSH (11:21)
== END 2025-04-19 12:45 | disposition home or self-care (01) ==
PROVIDERS: Student in an Organized Health Care Education/Training Program; Emergency Provider Emergency Medicine
DX: R10.31 Right lower quadrant pain (principal); I10 Essential (primary) hypertension; K21.9 Gastro-esophageal reflux disease without esophagitis; F32.A Depression, unspecified; F17.290 Nicotine dependence, other tobacco product, uncomplicated; F64.0 Transsexualism; Z90.49 Acquired absence of other specified parts of digestive tract; Z79.899 Other long term (current) drug therapy
CPT/HCPCS: 36415; 74177; 76856; 80053; 81001; 81025; 83690; 85025; 96361; 96374; 96375; 99284; J1885; J2270; J2405; J7030; Q9967